=== PATIENT | female | born 1935 | race Caucasian/White ===

== ENCOUNTER 2018-06-05 15:11 | Emergency (ER) | payer MEDICARE, OTHER ==
[~2018-06-05] VITALS: Ht 147.3 cm; Wt 49.9 kg
--- NOTE | 2018-06-05 16:41 | Diagnostic Imaging Report ---
Claims: Head and cervical spine CTs without IV contrast History: Trauma, fall, pain Comparison studies: None Technique: Axial images were obtained from the brain and cervical spine. Coronal and sagittal images reconstructed from the axial data. Dose modulation, iterative reconstruction, and/or weight based adjustment of the mA/kV was utilized to reduce the radiation dose to as low as reasonably achievable. Intravenous contrast: None Findings: Head CT: Scalp: Mild paramedian scalp swelling. Bones: No fractures, blastic or lytic lesions. Extra-axial spaces: No masses. No fluid collections. Brain sulci: Moderately prominent. Ventricles: Moderate compensatory dilatation. No hydrocephalus. Parenchyma: No mass, acute hemorrhage or acute cortical vascular insults. A few scattered hypodensities in the supratentorial white matter are nonspecific but most compatible with chronic small vessel ischemic changes. Sellar/suprasellar region: No abnormalities. Craniocervical junction: The foramen magnum is patent. No Chiari one malformation. Cervical spine CT: Fractures: None. Soft tissues: No gross abnormalities. Atlantoaxial articulation: Intact. Alignment: Hyperlordotic curvature. No subluxations. Cervicomedullary junction: No abnormalities. The foramen magnum is patent. Vertebrae: Diffusely demineralized bones and vertebrae. No infection or neoplasm. Degenerative changes: Multilevel disc degeneration, greatest at C5-C6 where there is mild loss of disc height and disc calcification. No significant canal stenosis. Multilevel facet arthrosis. Moderate bilateral foraminal stenosis at C5-C6 due to uncovertebral and facet arthrosis. Code along apices: Mild nonspecific pleural thickening and scarring Incidental findings: Bilateral lens replacements for previous scattered surgery. Atherosclerotic calcifications in the carotid bulbs and carotid siphons. Scattered nonspecific inflammatory mucosal thickening in the paranasal sinuses with partially opacified bilateral ethmoid air cells. IMPRESSION: Head CT: 1. Paramedian occipital scalp swelling without underlying fracture. 2. No acute intracranial abnormalities. 3. Moderate generalized cerebral volume loss. 4. Mild chronic microvascular ischemic changes. Cervical spine CT: 1. No cervical spine fracture or subluxation. 2. Degenerative changes, greatest at C5-C6. 3. Please note, cannot exclude ligament, spinal cord and or vascular abnormalities on the basis of this examination. Signed by: Dr. Ernesto Garcia M.D. on 06/05/2018 4:37 PM
--- NOTE | 2018-06-05 16:57 | Diagnostic Imaging Report ---
HUMERUS LEFT 2+VIEWS - 2 views HISTORY: Pain. Fell. Left arm pain. COMPARISON: None available. FINDINGS: Bones: No acute displaced fracture. Osseous alignment is within normal limits. Joints: Moderate degenerative changes in the left glenohumeral joint. Soft tissues: The soft tissues appear unremarkable. IMPRESSION: No acute radiographic abnormality. Signed by: Dr. Bobby Alarcon M.D. on 06/05/2018 4:54 PM
--- NOTE | 2018-06-05 16:57 | Diagnostic Imaging Report ---
HIPS BILAT 3-4VWS (+/- PELVIS) HISTORY: Pain. As follow twice. Complaining of left posterior rib pain status post fall. Pain in the left arm and bilateral hips. COMPARISON: None available. FINDINGS: Bones: No acute displaced fracture. Osseous alignment is within normal limits. Joints: Mild degenerative changes in bilateral hip joints. Severe degenerative changes in the lower lumbar spine. Moderate degenerative changes in bilateral SI joints. Moderate degenerative changes in the pubic symphysis. Soft tissues: The soft tissues appear unremarkable. Calcified uterine fibroids. IMPRESSION: Mild degenerative changes in bilateral hip joints with severe degenerative changes of lower lumbar spine. No acute fractures. Signed by: Dr. Bobby Alarcon M.D. on 06/05/2018 4:54 PM
--- NOTE | 2018-06-05 16:58 | Diagnostic Imaging Report ---
EXAMINATION: CHEST SINGLE (NOT PORTABLE) INDICATION: ^left posterior rib pain s/p fall COMPARISON: None FINDINGS: AP view TUBES and LINES: None. LUNGS: Lungs are mildly hyper inflated. Lungs are clear. There is no evidence of pneumonia or pulmonary edema. PLEURA: No pleural effusion or pneumothorax. HEART AND MEDIASTINUM: The cardiomediastinal silhouette is unremarkable. BONES AND SOFT TISSUES: No acute osseous lesion. Diffuse osteopenia. Soft tissues are unremarkable. Bilateral breast/soft tissue calcifications. UPPER ABDOMEN: No free air under the diaphragm. IMPRESSION: Diffuse osteopenia. No acute abnormalities. Signed by: Dr. Bobby Alarcon M.D. on 06/05/2018 4:55 PM
== END 2018-06-05 17:39 | disposition home or self-care (01) ==
LOC: ER 15:11
DX: S00.83XA Contusion of other part of head, initial encounter (principal); S40.022A Contusion of left upper arm, initial encounter; S20.222A Contusion of left back wall of thorax, initial encounter; M54.6 Pain in thoracic spine; W01.0XXA Fall on same level from slipping, tripping and stumbling without subsequent striking against object, initial encounter; Y92.008 Other place in unspecified non-institutional (private) residence as the place of occurrence of the external cause
CPT/HCPCS: 70450; 71045; 72125; 73522; 99283

== ENCOUNTER 2018-06-10 14:47 | Emergency (ER) | payer MEDICARE, OTHER ==
[~2018-06-10] VITALS: Ht 147.3 cm; Wt 49.9 kg
--- OUTSIDE RECORDS SUMMARY | 2018-06-10 14:50 | XMS REPORT ---
[facility] Address Unknown Phone Unavailable Care Team Providers Care Superintendent Building Name Role Phone Gonzalo CARDOZA Unavailable Unavailable Problems This patient has no known problems. Allergies, Adverse Reactions, Alerts This patient has no known allergies or adverse reactions. Medications This patient has no known medications. Results Test Description Test Time Test Comments Text Results Atomic Results Result Comments HUMERUS LEFT 2+VIEWS 2018-06-05 16:54:00 [place] [address] Patient Name: DEJA PETERSEN MR #: [id number] : 1935 Age/Sex: 82/F Req #: [id number] Adm Physician: Ordered by: AVIS TSAI HEAD OF GEOGRAPHY Report #: [id number] Location: ER Room/Bed: Procedure: [id number] DX/HUMERUS LEFT 2+VIEWS Exam Date: 06/05/18 Exam Time: 1550 REPORT STATUS: Signed HUMERUS LEFT 2+VIEWS - 2 views HISTORY: Pain. Fell. Left arm pain. COMPARISON: None available. FINDINGS: Bones: No acute displaced fracture. Osseous alignment is within normal limits. Joints: Moderate degenerative changes in the left glenohumeral joint. Soft tissues: The soft tissues appear unremarkable. IMPRESSION: No acute radiographic abnormality. Signed by: Dr. Bobby Alarcon M.D. on 06/05/2018 4:54 PM Dictated By: BOBBY ALARCON MD 53 Transcribed By: ARTURO on 06/05/181653 COPY TO: AVIS TSAI NP CHEST SINGLE (NOT PORTABLE) 2018-06-05 16:54:00 [place] [address] Patient Name: DEJA PETERSEN MR #: [id number] : 1935 Age/Sex: 82/F Req #: [id number] Adm Physician: Ordered by: AVIS TSAI NP Report #: [id number] Location: ER Room/Bed: Procedure: [id number] DX/CHEST SINGLE (NOT PORTABLE) Exam Date: 06/05/18 Exam Time: 1550 REPORT STATUS: Signed EXAMINATION: CHEST SINGLE (NOT PORTABLE) INDICATION: left posterior rib pain s/p fall COMPARISON: None FINDINGS: AP view TUBES and LINES: None. LUNGS: Lungs are mildly hyper inflated. Lungs are clear. There is no evidence of pneumonia or pulmonary edema. PLEURA: No pleural effusion or pneumothorax. HEART AND MEDIASTINUM: The cardiomediastinal silhouette is unremarkable. EDDIE MONAE AND SOFT TISSUES: No acute osseous lesion. Diffuse osteopenia. Soft tissues are unremarkable. Bilateral breast/soft tissue calcifications. UPPER ABDOMEN: No free air under the diaphragm. IMPRESSION: Diffuse osteopenia. No acute abnormalities. Signed by: Dr. Bobby lAarcon M.D. on 06/05/2018 4:55 PM Dictated By: BOBBY ALARCON MD 54 Transcribed By: ARTURO on 06/05/181654 COPY TO: TSAI,AVIS L HEAD OF GEOGRAPHY HIPS BILAT 3-4VWS (+/- PELVIS) 2018-06-05 16:52:00 [place] [address] Patient Name: DEJA PETERSEN MR #: [id number] : 1935 Age/Sex: 82/F Req #: [id number] Adm Physician: Ordered by: AVIS TSAI NP Report #: [id number] Location: ER Room/Bed: Procedure: [id number] DX/HIPS BILAT 3-4VWS (+/- PELVIS) Exam Date: Exam Time: REPORT STATUS: Signed HIPS BILAT 3-4VWS (+/- PELVIS) HISTORY: Pain. As follow twice. Complaining of left posterior rib pain status post fall. Pain in the left arm and bilateral hips. COMPARISON: None available. FINDINGS: Bones: No acute displaced fracture. Osseous alignment is within normal limits. Joints: Mild degenerative changes in bilateral hip joints. Severe degenerative changes in the lower lumbar spine. Moderate degenerative changes in bilateral SI joints. Moderate degenerative changes in the pubic symphysis. Soft tissues: The soft tissues appear unremarkable. Calcified uterine fibroids. IMPRESSION: Mild degenerative changes in bilateral hip joints with severe degenerative changes of lower lumbar spine. No acute fractures. Signed by: Dr. Bobby Alarcon M.D. on 06/05/2018 4:54 PM Dictated By: BOBBY ALARCON MD 53 Transcribed By: ARTURO on 06/05/181653 COPY TO: AVIS TSAI NP CT CERVICAL SPINE WO 2018-06-05 16:30:00 [address], [place] [address] Patient Name: DEJA PETERSEN MR #: [id number] : 1935 Age/Sex: 82/F Req #: [id number] [facility] Physician: Ordered by: AVIS TSAI NP Report #: [id number] Location: ER Room/Bed: Procedure: [id number] CT/CT CERVICAL SPINE WO Exam Date: 06/05/18 Exam Time: 1550 REPORT STATUS: Signed Claims: Head and cervical spine CTs without IV contrast History: Trauma, fall, pain Comparison studies: None Technique: Axial images were obtained from the brain and cervical spine. Coronal and sagittal images reconstructed from the axial data. Dose modulation, iterative reconstruction, and/or weight based adjustment of the mA/kV was utilized to reduce the radiation dose to as low as reasonably achievable. Intravenous contrast: None Findings: Head CT: Scalp: Mild paramedian scalp swelling. Bones: No fractures, blastic or lytic lesions. Extra- axial spaces: No masses. No fluid collections. Brain sulci: Moderately prominent. Ventricles: Moderate compensatory dilatation. No hydrocephalus. Parenchyma: No mass, acute hemorrhage or acute cortical vascular insults. A few scattered hypodensities in the supratentorial white matter are nonspecific but most compatible with chronic small vessel ischemic changes. Sellar/suprasellar region: No abnormalities. Craniocervical junction: The foramen magnum is patent. No Chiari one malformation. Cervical spine CT: Fractures: None. Soft tissues: No gross abnormalities. Atlantoaxial articulation: Intact. Alignment: Hyperlordotic curvature. No subluxations. Cervicomedullary junction: No abnormalities. The foramen magnum is patent. Vertebrae: Diffusely demineralized bones and vertebrae. No infection or neopl asm. Degenerative changes: Multilevel disc degeneration, greatest at C5- C6 where there is mild loss of disc height and disc calcification. No significant canal stenosis. Multilevel facet arthrosis. Moderate bilateral foraminal stenosis at C5-C6 due to uncovertebral and facet arthrosis. Code along apices: Mild nonspecific pleural thickening and scarring Incidental findings: Bilateral lens replacements for previous scattered surgery. Atherosclerotic calcifications in the carotid bulbs and carotid siphons. Scattered nonspecific inflammatory mucosal thickening in the parana randal sinuses with partially opacified bilateral ethmoid air cells. IMPRESSION: Head CT: 1. Paramedian occipital scalp swelling without underlying fracture. 2. No acute intracranial abnormalities. 3. Moderate generalized cerebral volume loss. 4. Mild chronic microvascular ischemic changes. Cervical spine CT: 1. No cervical spine fracture or subluxation. 2. Degenerative changes, greatest at C5-C6. 3. Please note, cannot exclude ligament, spinal cord and or vascular abnormalities on the basis of this examination. Signed by: Dr. Sommer Garcia M.D. on 06/05/2018 4:37 PM Dictated By: SOMMER GARCIA MD 1637 Transcribed By: ARTURO on 06/05/18 1637 COPY TO: AVIS TSAI NP CT BRAIN WO 2018-06-05 16:30:00 [place] [address] Patient Name: DEJA PETERSEN MR #: [id number] : 1935 Age/Sex: 82/F Req #: [id number] Adm Physician: Ordered by: AVIS TSAI NP Report #: [id number] Location: ER Room/Bed: Procedure: [id number] CT/CT BRAIN WO Exam Date: 06/05/18 Exam Time: 1550 REPORT STATUS: Signed Claims: Head and cervical spine CTs without IV contrast His tory: Trauma, fall, pain Comparison studies: None Technique: Axial images were obtained from the brain and cervical spine. Coronal and sagittal images reconstructed from the axial data. Dose modulation, iterative reconstruction, and/or weight based adjustment of the mA/kV was utilized to reduce the radiation dose to as low as reasonably achievable. Intravenous contrast: None Findings: Head CT: Scalp: Mild paramedian scalp swelling. Bones: No fractures, blastic or lytic lesions. Extra- axial spaces: No masses. No fluid collections. Brain sulci: Moderately prominent. Ventricles: Moderate compensatory dilatation. No hydrocephalus. Parenchyma: No mass, acute hemorrhage or acute cortical vascular insults. A few scattered hypodensities in the supratentorial white matter are nonspecific but most compatible with chronic small vessel ischemic changes. Sellar/suprasellar region: No abnormalities. Craniocervical junction: The foramen magnum is patent. No Chiari one malformation. Cervical spine CT: Fractures: None. Soft tissues: No gross abnormalities. Atlantoaxial articulation: Intact. Alignment: Hyperlordotic curvature. No subluxations. Cervicomedullary junction: No abnormalities. The foramen magnum is patent. Vertebrae: Diffusely demineralized bones and vertebrae. No infection or neoplasm. Degenerative changes: Multilevel disc degeneration, greatest at C5-C6 where there is mild loss of disc height and disc calcification. No significant canal stenosis. Multilevel facet arthrosis. Moderate bilateral foraminal stenosis at C5-C6 due to uncovertebral and facet arthrosis. Code along apices: Mild nonspecific pleural thickening and scarring Incidental findings: Bilateral lens replacements for previous scattered surgery. Atherosclerotic calcifications in the carotid bulbs and carotid siphons. Scattered nonspecific inflammatory mucosal thickening in the paranasal sinuses with partially opacified bilateral ethmoid air cells. IMPRESSION: Head CT: 1. Paramedian occipital scalp swelling without underlying fracture. 2. No acute intracranial abnormalities. 3. Moderate generalized cerebral volume loss. 4. Mild chronic microvascular ischemic changes. Cervical spine CT: 1. No cervical spine fracture or subluxation. 2. Degenerative changes, greatest at C5-C6. 3. Please note, cannot exclude ligament, spinal cord and or vascular abnormalities on the basis of this examination. Signed by: Dr. Sommer Garcia M.D. on 06/05/2018 4:37 PM Dictated By: SOMMER GARCIA MD 36 Transcribed By: ARTURO on 06/05/181636 COPY TO: AVIS TSAI HEAD OF GEOGRAPHY CBC 2017-08-06 18:57:00 WBC (test code=WBC) 1.2 K/UL 3.5-10.9 RBC (test code=RBC) 2.32 M/UL 4.0-5.0 HGB (test code=HGB) 7.4 G/DL 11.5-15.5 HCT (test code=HCT) 23.1 % 34-46 MCV (test code=MCV) 99.6 FL 80-98 MCH (test code=MCH) 31.9 PG 28-32 MCHC (test code=MCHC) 32.0 G/DL 32.5-36.5 RDW (test code=RDW) 19.6 % 11.5-14.5 PLT (test code=PLT) 276 K/UL 150-450 MPV (test code=MPV) 8.4 FL 7.4-10.4 MANDIFF (test code=MANDIFF) NO SCAN (test code=SCAN) YES NEUT% (test code=NEUT%) 13.2 % 40-75 LYMPH% (test code=LYMPH%) 63.9 % 24-44 MONO% (test code=MONO%) 21.3 % 0-13 EOS% (test code=EOS%) 0.8 % 0-4 BASO % (test code=BASO%) 0.8 % 0-2 IG% (test code=IG%) 0.0 % 0-1 IG%=Metamyelocytes, Myelocytes, and Promyelocytes. (Immature neutrophils not including "bands".) > 3% IG indicates risk of sepsis NRBC% (test code=NRBC%) 0 /100 WBC PLT-EST (test code=PLT-EST) NORMAL NORMAL HYPOCHROMIC (test code=HYPO) 1+ ABS NEUT (test code=NEUT) 0.2 K/UL 1.2-7.2 RESULTS VERIFIED.C'd TO SF CALLED TO DR. TREJO 1830 08/06/[id number] 17:10:00* Test Item Value Reference Range Comments SODIUM (test code=NA) 139 MMOL/L 137-145 K+ (test code=KSERUM) 4.0 MMOL/L 3.5-5.1 PLEASE NOTE NEW REFERENCE RANGE(S) IN EFFECT EFFECTIVE 10/28/2009 - [employer] ([employer] 5600) CHLORIDE (test code=CL) 102 MMOL/L 98-107 CO2 (test code=CO2) 26 MMOL/L 22-30 BUN (test code=BUN) 12 MG/DL 7-17 CREA (test code=CREA) 0.7 MG/DL 0.7-1.2 GLUCOSE (test code=GLUCOSE) 89 MG/DL 70-99 Fasting glucose normal <100 MG/DL- [employer] recommendation CALCIUM (test code=CABLOOD) 8.6 MG/DL 8.4-10.2 TOTPROT (test code=TOTPROT) 7.6 G/DL 6.3-8.2 ALBUMIN (test code=ALBSERUM) 3.6 G/DL 3.5-5.0 BILITOT (test code=BILITOT) 1.1 MG/DL 0.2-1.3 AST (test code=AST) 19 U/L 15-46 PHOSALK (test code=PHOSALK) 99 U/L 38-126 ALT (test code=ALT) 16 U/L 13-69 GFR (test code=GFR) TNP mL/min/1.73m2 GFR CALCULATION IS NOT APPLICABLE FOR PATIENTS <18 A GFR of >90 mL/min/1.73m2 is considered normal. C-REACTIVE [id number] 17:10:00* Test Item Value Reference Range Comments CRP (test code=CRP) 2.5 <1.0 mg/dL SEDIMENTATION [id number] 16:46:00* Test Item Value Reference Range Comments SED RATE (test code=ESR) 99 MM/HR 0-20 QUANTIFERON TB [id number] 08:27:00* Test Item Value Reference Range Comments TBQF (test code=TBQF) NEGATIVE NEGATIVE TESTING [place] [address] (RESULTS AVAILABLE UNDER SEPARATE COVER) [id number] 11:55:00* Test Item Value Reference Range Comments SODIUM (test code=NA) 136 MMOL/L 137-145 K+ (test code=KSERUM) 3.5 MMOL/L 3.5-5.1 PLEASE NOTE NEW REFERENCE RANGE(S) IN EFFECT EFFECTIVE 10/28/2009 - NEW [employer]NA[employer] ([employer] 5600) CHLORIDE (test code=CL) 102 MMOL/L 98-107 CO2 (test code=CO2) 25 MMOL/L 22-30 BUN (test code=BUN) 12 MG/DL 7-17 CREA (test code=CREA) 0.6 MG/DL 0.7-1.2 GLUCOSE (test code=GLUCOSE) 93 MG/DL 70-99 Fasting glucose normal <100 MG/DL- [employer] recommendation CALCIUM (test code=CABLOOD) 8.5 MG/DL 8.4-10.2 TOTPROT (test code=TOTPROT) 7.3 G/DL 6.3-8.2 ALBUMIN (test code=ALBSERUM) 3.3 G/DL 3.5-5.0 BILITOT (test code=BILITOT) 0.9 MG/DL 0.2-1.3 AST (test code=AST) 16 U/L 15-46 PHOSALK (test code=PHOSALK) 102 U/L 38-126 ALT (test code=ALT) 18 U/L 13-69 GFR (test code=GFR) TNP mL/min/1.73m2 GFR CALCULATION IS NOT APPLICABLE FOR PATIENTS <18 A GFR of >90 mL/min/1.73m2 is considered normal. [id number] 11:54:00* Test Item Value Reference Range Comments WBC (test code=WBC) 1.1 K/UL 3.5-10.9 RBC (test code=RBC) 2.56 M/UL 4.0-5.0 HGB (test code=HGB) 7.8 G/DL 11.5-15.5 HCT (test code=HCT) 24.1 % 34-46 MCV (test code=MCV) 94.1 FL 80-98 MCH (test code=MCH) 30.5 PG 28-32 MCHC (test code=MCHC) 32.4 G/DL 32.5-36.5 RDW (test code=RDW) 17.9 % 11.5-14.5 PLT (test code=PLT) 234 K/UL 150-450 MPV (test code=MPV) 8.5 FL 7.4-10.4 MANDIFF (test code=MANDIFF) NO SCAN (test code=SCAN) YES NEUT% (test code=NEUT%) 19.8 % 40-75 LYMPH% (test code=LYMPH%) 55.9 % 24-44 MONO% (test code=MONO%) 23.4 % 0-13 EOS% (test code=EOS%) 0.0 % 0-4 BASO % (test code=BASO%) 0.9 % 0-2 IG% (test code=IG%) 0.0 % 0-1 IG%=Metamyelocytes, Myelocytes, and Promyelocytes. (Immature neutrophils not including "bands".) > 3% IG indicates risk of sepsis NRBC% (test code=NRBC%) 0 /100 WBC PLTMORPH (test code=PLTMORPH) LARGE PLATELETS NORMAL ABS NEUT (test code=NEUT) 0.2 K/UL 1.2-7.2 RESULTS VERIFIED.C'd TO e/ [facility] office/1154/[id number] 15:35:00* Test Item Value Reference Range Comments WBC (test code=WBC) 1.3 K/UL 3.5-10.9 RBC (test code=RBC) 2.36 M/UL 4.0-5.0 HGB (test code=HGB) 7.3 G/DL 11.5-15.5 HCT (test code=HCT) 22.6 % 34-46 MCV (test code=MCV) 95.8 FL 80-98 MCH (test code=MCH) 30.9 PG 28-32 MCHC (test code=MCHC) 32.3 G/DL 32.5-36.5 RDW (test code=RDW) 16.6 % 11.5-14.5 PLT (test code=PLT) 159 K/UL 150-450 MPV (test code=MPV) 8.7 FL 7.4-10.4 MANDIFF (test code=MANDIFF) NO SCAN (test code=SCAN) YES NEUT% (test code=NEUT%) 13.9 % 40-75 LYMPH% (test code=LYMPH%) 61.5 % 24-44 MONO% (test code=MONO%) 22.3 % 0-13 EOS% (test code=EOS%) 0.0 % 0-4 BASO % (test code=BASO%) 1.5 % 0-2 IG% (test code=IG%) 0.8 % 0-1 IG%=Metamyelocytes, Myelocytes, and Promyelocytes. (Immature neutrophils not including "bands".) > 3% IG indicates risk of sepsis NRBC% (test code=NRBC%) 0 /100 WBC PLT-EST (test code=PLT-EST) NORMAL NORMAL ANISOCYTOISIS (test code=ANIS) 3+ ABS NEUT (test code=NEUT) 0.2 K/UL 1.2-7.2 CHECKED x2 RESULTS VERIFIED.C'd TO ord/opi/1040/caBMP, BASIC METABOLIC PANEL 2017-06-05 11:22:00* Test Item Value Reference Range Comments SODIUM (test code=NA) 139 MMOL/L 137-145 K+ (test code=KSERUM) 3.5 MMOL/L 3.5-5.1 PLEASE NOTE NEW REFERENCE RANGE(S) IN EFFECT EFFECTIVE 10/28/2009 - NEW ANA[employer]ZER ([employer] 56[employer]) CHLORIDE (test code=CL) 103 MMOL/L 98-107 CO2 (test code=CO2) 26 MMOL/L 22-30 BUN (test code=BUN) 12 MG/DL 7-17 CREA (test code=CREA) 0.6 MG/DL 0.7-1.2 GLUCOSE (test code=GLUCOSE) 83 MG/DL 70-99 Fasting glucose normal <100 MG/DL- [employer] recommendation CALCIUM (test code=CABLOOD) 8.6 MG/DL 8.4-10.2 GFR (test code=GFR) TNP mL/min/1.73m2 GFR CALCULATION IS NOT APPLICABLE FOR PATIENTS <18 A GFR of >90 mL/min/1.73m2 is considered normal. [id number] 21:59:00* Test Item Value Reference Range Comments WBC (test code=WBC) 1.1 K/UL 3.5-10.9 RBC (test code=RBC) 2.35 M/UL 4.0-5.0 HGB (test code=HGB) 7.3 G/DL 11.5-15.5 HCT (test code=HCT) 23.3 % 34-46 MCV (test code=MCV) 99.1 FL 80-98 MCH (test code=MCH) 31.1 PG 28-32 MCHC (test code=MCHC) 31.3 G/DL 32.5-36.5 RDW (test code=RDW) 16.8 % 11.5-14.5 PLT (test code=PLT) 229 K/UL 150-450 MPV (test code=MPV) 9.0 FL 7.4-10.4 MANDIFF (test code=MANDIFF) NO SCAN (test code=SCAN) NO NEUT% (test code=NEUT%) 5.6 % 40-75 LYMPH% (test code=LYMPH%) 73.4 % 24-44 MONO% (test code=MONO%) 17.4 % 0-13 EOS% (test code=EOS%) 0.0 % 0-4 BASO % (test code=BASO%) 1.8 % 0-2 IG% (test code=IG%) 1.8 % 0-1 IG%=Metamyelocytes, Myelocytes, and Promyelocytes. (Immature neutrophils not including "bands".) > 3% IG indicates risk of sepsis NRBC% (test code=NRBC%) 0 /100 WBC ABS NEUT (test code=NEUT) 0.1 K/UL 1.2-7.2 DR. MCCLOUD @6325. CONSISTENT WITH PATIENT HISTORY.LS RESULTS VERIFIED.C'd TO DR. TREJO OFFICE @5945/LEFT MESSAGE.IGG [id number] 19:43:00* Test Item Value Reference Range Comments IGG (test code=IGGS) 2066 mg/dL 700-1600 IGM [id number] 19:43:00* Test Item Value Reference Range Comments IGM (test code=IGMS) 148 mg/dL 40-230 IGA [id number] 19:43:00* Test Item Value Reference Range Comments IGA (test code=IGAS) 1005 mg/dL 70-400 SEDIMENTATION [id number] 19:25:00* Test Item Value Reference Range Comments SED RATE (test code=ESR) 105 MM/HR 0-20 [id number] 19:13:00* Test Item Value Reference Range Comments SODIUM (test code=NA) 138 MMOL/L 137-145 K+ (test code=KSERUM) 3.4 MMOL/L 3.5-5.1 PLEASE NOTE NEW REFERENCE RANGE(S) IN EFFECT EFFECTIVE 10/28/2009 - NEW ANALYZER ([employer] 5600) CHLORIDE (test code=CL) 99 MMOL/L 98-107 CO2 (test code=CO2) 28 MMOL/L 22-30 BUN (test code=BUN) 13 MG/DL 7-17 CREA (test code=CREA) 0.7 MG/DL 0.7-1.2 GLUCOSE (test code=GLUCOSE) 102 MG/DL 70-99 Fasting glucose normal <100 MG/DL- [employer] recommendation CALCIUM (test code=CABLOOD) 8.6 MG/DL 8.4-10.2 TOTPROT (test code=TOTPROT) 7.4 G/DL 6.3-8.2 ALBUMIN (test code=ALBSERUM) 3.3 G/DL 3.5-5.0 BILITOT (test code=BILITOT) 1.0 MG/DL 0.2-1.3 AST (test code=AST) 18 U/L 15-46 PHOSALK (test code=PHOSALK) 111 U/L 38-126 ALT (test code=ALT) <6 U/L 13-69 GFR (test code=GFR) TNP mL/min/1.73m2 GFR CALCULATION IS NOT APPLICABLE FOR PATIENTS <18 A GFR of >90 mL/min/1.73m2 is considered normal. C-REACTIVE [id number] 19:13:00* Test Item Value Reference Range Comments CRP (test code=CRP) 3.7 <1.0 mg/dL CT ABDOMEN/PELVIS [id number] 10:47:[address] [address]HZUBICMKSC IMAGING REPORTPatient Name: DEJA PETERSEN SDate of Service: 09-20-1354Yor: 81 Sex: F Order #: [id number] Room: OPEDOB: 1935 X-Ray Number: [id number] Record Number: [id number] Hospital Number: [id number] Physician: JAYME TREJO Physician: JAYME TREJO LCT abdomen and pelvis with contrast9:01 AMHistory: Leukopenia, anemia, abnormal weight loss. Assess forlymphadenopathy and splenomegaly.This CT exam was performed using one or more of the following dosereduction techniques: Automated exposure control, adjustment of the MAand/or KV according to patient size or use of iterative reconstructionte chnique.Findings:The spleen is enlarged measuring approximately 15 x 9 x 11 cm. There are nofocal splenic mass lesions seen.There is no enlarged lymphadenopathy seen within the abdomen or pelvis.There are multiple calcified uterine fibroids, largest measuring nearly 3cm.There is no small bowel obstruction.There is mode rate sigmoid colonic diverticulosis without associateddiverticulitis.There is no evidence for appendicitis or pancreatitis.Degenerative scoliosis is present.Both kidneys enhance symmetrically without hydronephrosis.There are no other focal solid organ solid mass lesions.Degenerative scoliosis.Impression:Splenomegaly (1 5 x 11 x 9 cm) without focal splenic mass lesion.Multiple calcified uterine fibr oids.Electronically Signed By: Andrew Qureshi M.D., 06/26/2016 10:43 AMLegamesha au thenticated by SUKUMAR PLATT 2016-06-26 10:43:55HAND [id number] 13:55:[address] [id number] TIC IMAGING REPORTPatient Name: DEJA PETERSEN SDate of Service: 05-27-7958Hyp : 80 Sex: F Order #: [id number] Room: OPEDOB: 1935 X-Ray Number: [id number] Record Number: [id number] Hospital Number: [id number] Physician: JAYME TREJO Physician: JAYME TREJO LMultiple plain film vie ws.History: Rheumatoid arthritis.Comparison: None.Technique/findings:Chest: 2 vi ews of the chest were obtained. The heart size is at the upperlimits of normal w ith prominence of left ventricle. Lungs appearhyperinflated/emphysematous but fo mikel clear. The osseous structuresappear intact with S-shaped scoliosis of the thoracolumbar spine noted.Right wrist and hand: 3 views of the right hand, 4 vie ws of the right wristwere reviewed. Images the right wrist demonstrate diffuse o steopenia. Thereis marked radiocarpal joint space loss. There is no discernible spacebetween the scaphoid and the lunate. The second intercarpal row may also be fused at multiple levels. There is degenerative joint space loss and poorvisuali zation of the joint space between the carpometacarpal joints at thesecond and th ird carpometacarpal joint. There is subluxation of the base ofthe first metacarp al. There is subluxation of the first carpometacarpaljoint. There is contracture deformity of the first interphalangeal joint.The joint spaces of the other meta carpal phalangeal joints appear wellpreserved. The interphalangeal and distal in terphalangeal joints appearnarrowed without erosions.Left wrist and hand: 3 view s of left hand, 4 views of the left wrist werereviewed. Again, there is radiocar pal joint space loss although theintercarpal joint spaces appear better preserve d than those seen on theright. There is sclerosis and subluxation of the first c arpometacarpaljoint. There is diffuse osteopenia. There are no significant bony erosivechanges. There are no bony erosive changes involving the metacarpals orph alanges. There is mild degenerative joint space loss of theinterphalangeal joint s. There is no significant left thumb contracture.Impression:No acute-appearing cardiopulmonary abnormalities. Images of the hands andwrists suggest diffuse non inflammatory osteoarthritic changes andosteopenia.Electronically Signed By: Nigel Gunn M.D., 06/06/2016 1:52 PMLegally authenticated by NAOMIE Pierre 2016-06-06 13:52:19HAND [id number] 13:55:[address] [id number] IMAGING REPORTPatient Name: DEJA PETERSEN SDate of Service: 88-53-7758Idc: 80 Sex: F Order #: [id number] Room: OPEDOB: 1935 X-Ray Number: [id number] Record Number: [id number] Hospital Number: [id number] Physician: JAYME TREJO Physician: JAYME TREJO LMchase plain film vie ws.History: Rheumatoid arthritis.Comparison: None.Technique/findings:Chest: 2 vi ews of the chest were obtained. The heart size is at the upperlimits of normal w ith prominence of left ventricle. Lungs appearhyperinflated/emphysematous but fo mikel clear. The osseous structuresappear intact with S-shaped scoliosis of the thoracolumbar spine noted.Right wrist and hand: 3 views of the right hand, 4 vie ws of the right wristwere reviewed. Images the right wrist demonstrate diffuse o steopenia. Thereis marked radiocarpal joint space loss. There is no discernible spacebetween the scaphoid and the lunate. The second intercarpal row may also be fused at multiple levels. There is degenerative joint space loss and poorvisuali zation of the joint space between the carpometacarpal joints at thesecond and th ird carpometacarpal joint. There is subluxation of the base ofthe first metacarp al. There is subluxation of the first carpometacarpaljoint. There is contracture deformity of the first interphalangeal joint.The joint spaces of the other meta carpal phalangeal joints appear wellpreserved. The interphalangeal and distal in terphalangeal joints appearnarrowed without erosions.Left wrist and hand: 3 view s of left hand, 4 views of the left wrist werereviewed. Again, there is radiocar pal joint space loss although theintercarpal joint spaces appear better preserve d than those seen on theright. There is sclerosis and subluxation of the first c arpometacarpaljoint. There is diffuse osteopenia. There are no significant bony erosivechanges. There are no bony erosive changes involving the metacarpals orph alanges. There is mild degenerative joint space loss of theinterphalangeal joint s. There is no significant left thumb contracture.Impression:No acute-appearing cardiopulmonary abnormalities. Images of the hands andwrists suggest diffuse non inflammatory osteoarthritic changes andosteopenia.Electronically Signed By: Nigel Gunn M.D., 06/06/2016 1:52 PMLegally authenticated by NAOMIE Pierre 2016-06-06 13:52:19CHEST XR 2 [id number] 13:55:[address] [id number] IMAGING REPORTPatient Name: DEJA PETERSEN SDate of Service: [id number]: 80 Sex: F Order #: [id number] Room: OPEDOB: 1935 X-Ray Number: [id number] Record Number: [id number] Hospital Number: [id number] Physician: JAYME TREJO Physician: JAYME TREJO plain film vie ws.History: Rheumatoid arthritis.Comparison: None.Technique/findings:Chest: 2 vi ews of the chest were obtained. The heart size is at the upperlimits of normal w ith prominence of left ventricle. Lungs appearhyperinflated/emphysematous but fo mikel clear. The osseous structuresappear intact with S-shaped scoliosis of the thoracolumbar spine noted.Right wrist and hand: 3 views of the right hand, 4 vie ws of the right wristwere reviewed. Images the right wrist demonstrate diffuse o steopenia. Thereis marked radiocarpal joint space loss. There is no discernible spacebetween the scaphoid and the lunate. The second intercarpal row may also be fused at multiple levels. There is degenerative joint space loss and poorvisuali zation of the joint space between the carpometacarpal joints at thesecond and th ird carpometacarpal joint. There is subluxation of the base ofthe first metacarp al. There is subluxation of the first carpometacarpaljoint. There is contracture deformity of the first interphalangeal joint.The joint spaces of the other meta carpal phalangeal joints appear wellpreserved. The interphalangeal and distal in terphalangeal joints appearnarrowed without erosions.Left wrist and hand: 3 view s of left hand, 4 views of the left wrist werereviewed. Again, there is radiocar pal joint space loss although theintercarpal joint spaces appear better preserve d than those seen on theright. There is sclerosis and subluxation of the first c arpometacarpaljoint. There is diffuse osteopenia. There are no significant bony erosivechanges. There are no bony erosive changes involving the metacarpals orph alanges. There is mild degenerative joint space loss of theinterphalangeal joint s. There is no significant left thumb contracture.Impression:No acute-appearing cardiopulmonary abnormalities. Images of the hands andwrists suggest diffuse non inflammatory osteoarthritic changes andosteopenia.Electronically Signed By: Nigel Gunn M.D., 06/06/2016 1:52 PMLegally authenticated by NAOMIE Pierre 2016-06-06 13:52:[id number] 13:54:[address] [id number] IMAGING REPORTPatient Name: DEJA PETERSEN SDate of Service: [id number]: 80 Sex: F Order #: [id number] Room: OPEDOB: 1935 X-Ray Number: [id number] Record Number: [id number] Hospital Number: [id number] Physician: JAYME TREJO Physician: JAYME TREJO [facility] views.History: Rheumatoid arthritis.Comparison: None.Technique/findings:Chest: 2 views of the chest were obtained. The heart size is at the upperlimits of normal with prominence of left ventricle. Lungs appearhyperinflated/emphysematous but focally clear. The osseous structuresappear intact with S-shaped scoliosis of the thoracolumbar spine noted.Right wrist and hand: 3 views of the right hand, 4 views of the right wristwere reviewed. Images the right wrist demonstrate diffuse osteopenia. Thereis marked radiocarpal joint space loss. There is no discernible spacebetween the scaphoid and the lunate. The second intercarpal row may also be fused at multiple levels. There is degenerative joint space loss and poorvisuali zation of the joint space between the carpometacarpal joints at thesecond and th ird carpometacarpal joint. There is subluxation of the base ofthe first metacarp al. There is subluxation of the first carpometacarpaljoint. There is contracture deformity of the first interphalangeal joint.The joint spaces of the other meta carpal phalangeal joints appear wellpreserved. The interphalangeal and distal in terphalangeal joints appearnarrowed without erosions.Left wrist and hand: 3 view s of left hand, 4 views of the left wrist werereviewed. Again, there is radiocar pal joint space loss although theintercarpal joint spaces appear better preserve d than those seen on theright. There is sclerosis and subluxation of the first c arpometacarpaljoint. There is diffuse osteopenia. There are no significant bony erosivechanges. There are no bony erosive changes involving the metacarpals orph alanges. There is mild degenerative joint space loss of theinterphalangeal joint s. There is no significant left thumb contracture.Impression:No acute-appearing cardiopulmonary abnormalities. Images of the hands andwrists suggest diffuse non inflammatory osteoarthritic changes andosteopenia.Electronically Signed By: Nigel Gunn M.D., 06/06/2016 1:52 PMLegally authenticated by NAOMIE Pierre 2016-06-06 13:52:[id number] 13:54:[address]PT[address] [id number] IMAGING REPORTPatient Name: DEJA PETERSEN SDate of Service: [id number]: 80 Sex: F Order #: [id number] Room: OPEDOB: 1935 X-Ray Number: [id number] Record Number: [id number] Hospital Number: [id number] Physician: JAYME TREJO Physician: JAYME TREJO LMultiplcristi plain film views.History: Rheumatoid arthritis.Comparison: None.Technique/findings:Chest: 2 views of the chest were obtained. The heart size is at the upperlimits of normal with prominence of left ventricle. Lungs appearhyperinflated/emphysematous but focally clear. The osseous structuresappear intact with S-shaped scoliosis of the thoracolumbar spine noted.Right wrist and hand: 3 views of the right hand, 4 views of the right wristwere reviewed. Images the right wrist demonstrate diffuse osteopenia. Thereis marked radiocarpal joint space loss. There is no discernible spacebetween the scaphoid and the lunate. The second intercarpal row may also be fused at multiple levels. There is degenerative joint space loss and poorvisuali zation of the joint space between the carpometacarpal joints at thesecond and th ird carpometacarpal joint. There is subluxation of the base ofthe first metacarp al. There is subluxation of the first carpometacarpaljoint. There is contracture deformity of the first interphalangeal joint.The joint spaces of the other meta carpal phalangeal joints appear wellpreserved. The interphalangeal and distal in terphalangeal joints appearnarrowed without erosions.Left wrist and hand: 3 view s of left hand, 4 views of the left wrist werereviewed. Again, there is radiocar pal joint space loss although theintercarpal joint spaces appear better preserve d than those seen on theright. There is sclerosis and subluxation of the first c arpometacarpaljoint. There is diffuse osteopenia. There are no significant bony erosivechanges. There are no bony erosive changes involving the metacarpals orph alanges. There is mild degenerative joint space loss of theinterphalangeal joint s. There is no significant left thumb contracture.Impression:No acute-appearing cardiopulmonary abnormalities. Images of the hands andwrists suggest diffuse non inflammatory osteoarthritic changes andosteopenia.Electronically Signed By: Nigel Gunn M.D., 06/06/2016 1:52 PMLegally authenticated by NAOMIE Pierre 2016-06-06 13:52:19
[2018-06-10 16:53] LABS: BILIRUBIN,URINE 1+ (NEGATIVE); CLARITY,URINE SL CLOUDY (CLEAR); COLOR,URINE YELLOW (YELLOW); KETONES,URINE 1+ (NEGATIVE); LEUKOCYTE ESTERASE ,URINE 1+ (NEGATIVE); NITRITE,URINE POSITIVE (NEGATIVE); PROTEIN,URINE DIPSTICK 2+ (NEGATIVE); URINE UROBILINOGEN 1 mg/dL (0.2 - 1)
[2018-06-10 17:05] LABS: BACTERIA,URINE MANY /HPF; EPITHELIAL CELLS,URINE RARE /LPF
[2018-06-10] MEDS ORDERED: CEFTRIAXONE SOD 1 GM VIAL IM ONE (17:30)
[2018-06-10 17:44] VITALS: BP 148/81
== END 2018-06-10 18:50 | disposition home or self-care (01) ==
LOC: ER 14:47
DX: M54.5 Low back pain (principal); R10.9 Unspecified abdominal pain; N30.90 Cystitis, unspecified without hematuria
CPT/HCPCS: 81001; 87086; 87186; 99284; J0696

== ENCOUNTER 2018-10-22 05:22 | Inpatient (IN) | payer MEDICARE, OTHER ==
[~2018-10-22] VITALS: Ht 152.4 cm; Wt 43.3 kg
[2018-10-22] MEDS ORDERED: ONDANSETRON HCL INJ 2MG/ML 2ML 2 MG/ML VIAL IV STA (05:25)
[2018-10-22] MEDS ORDERED: HYDROMORPHONE 2MG/ML 2 MG/ML ML IV ONE (05:30)
[2018-10-22 05:48] LABS: BASOPHILS % 0.7 % (0.0-1.0); EOSINOPHILS # (AUTO) 0.1 (0.0-0.4); EOSINOPHILS % 2.5 % (0.0-6.0); HEMATOCRIT 32.3 % (34.2-44.1); HEMOGLOBIN 10.8 g/dL (12.0-16.0); LYMPHOCYTES # (AUTO) 1.4 (1.0-3.2); LYMPHOCYTES % 34.1 % (18.0-39.1); MEAN CORPUSCULAR HEMOGLOBIN 32.8 pg (28-32); MEAN CORPUSCULAR HGB CONC 33.4 g/dL (31-35); MEAN CORPUSCULAR VOLUME 98.2 fL (81-99); MONOCYTES # (AUTO) 0.3 (0.2-0.8); MONOCYTES % 7.8 % (4.4-11.3); NEUTROPHILS # (AUTO) 2.2 (2.1-6.9); NEUTROPHILS % 54.4 % (38.7-80.0); PLATELET COUNT 202 x10e3/uL (140-360); RED BLOOD COUNT 3.29 x10e6/uL (3.6-5.1); RED CELL DISTRIBUTION WIDTH 14.3 % (11.7-14.4)
[2018-10-22 05:58] LABS: INR 0.89; PROTHROMBIN TIME 12.5 seconds (11.9-14.5)
[2018-10-22 05:59] LABS: PARTIAL THROMBOPLASTIN TIME 36.8 seconds (23.8-35.5)
[2018-10-22 06:06] LABS: ALANINE AMINOTRANSFERASE 16 IU/L (0-55); ALBUMIN 3.4 g/dL (3.5-5.0); ALBUMIN/GLOBULIN RATIO 0.9 (0.8-2.0); ALKALINE PHOSPHATASE 102 IU/L (40-150); ANION GAP 14.2 mmol/L (8-16); BLOOD UREA NITROGEN 17 mg/dL (7-26); BUN/CREATININE RATIO 20 (6-25); CALCIUM 9.4 mg/dL (8.4-10.2); CARBON DIOXIDE 24 mmol/L (22-29); CHLORIDE 106 mmol/L (98-107); CREATINE KINASE 22 IU/L (29-168); CREATININE, SERUM 0.84 mg/dL (0.57-1.11); EST GLOMERULAR FILTRATION RATE > 60 ML/MIN (60-); GLUCOSE 113 mg/dL (74-118); POTASSIUM 4.2 mmol/L (3.5-5.1); SODIUM 140 mmol/L (136-145)
--- NOTE | 2018-10-22 06:16 | Diagnostic Imaging Report ---
History:Fall Comparison studies: None Technique: Axial images were obtained from the skull base to the vertex. Coronal and sagittal images reconstructed from the axial data. Dose modulation, iterative reconstruction, and/or weight based adjustment of the mA/kV was utilized to reduce the radiation dose to as low as reasonably achievable. Intravenous contrast: None Findings: Scalp/skull: No abnormalities. Extra-axial spaces: No masses. No fluid collections. Brain sulci: Moderately prominent. Ventricles: Moderate compensatory dilatation. No hydrocephalus. Parenchyma: Subtle hypodensities in the supratentorial white matter are small vessel ischemic changes. No masses, hemorrhage, acute or chronic cortical vascular insults. Sellar/suprasellar region: No abnormalities. Craniocervical junction: Patent foramen magnum. No Chiari one malformation. Incidental findings: Subtle atherosclerotic calcifications in the carotid siphons . Peripheral mucosal thickening in the left maxillary sinus Impression: No acute abnormalities. Chronic findings: 1. Moderate generalized volume loss. 2. Mild supratentorial white matter small vessel ischemic changes. Signed by: Dr. Parvez Valenzuela M.D. on 10/22/2018 6:13 AM
--- NOTE | 2018-10-22 06:22 | Diagnostic Imaging Report ---
History: Fall Comparison studies: None Technique: Axial images were obtained through the cervical region.. Coronal and sagittal images reconstructed from the axial data. Dose modulation, iterative reconstruction, and/or weight based adjustment of the mA/kV was utilized to reduce the radiation dose to as low as reasonably achievable. Intravenous contrast: None Findings: Fractures: No acute fractures Soft tissues: No gross abnormalities. Atlantoaxial articulation: Intact. Alignment: Increased lordosis. No scoliosis. Cervicomedullary junction: No abnormalities. The foramen magnum is patent. Vertebrae: The bones are diffusely demineralized. A chronic, sclerotic compression fracture at T1 resulting in 40% height loss. No retropulsed fragment displaced into the spinal canal. No infection or neoplasm. Degenerative changes: Mildly degenerated disc at C5-6. Mildly degenerated facets throughout the cervical region. Foraminal stenosis, mild right C3-4, left at C4-5, moderate bilaterally at C5-6 due to facet and uncovertebral arthrosis. Patent spinal canal. Incidental bilateral coarse atherosclerotic calcifications in the carotid bulbs. IMPRESSION: 1. The bones are diffusely demineralized but there are no acute fractures. 2. A chronic compression fracture at T1, however, results in 40% height loss. No retropulsed fragment displaced into the spinal canal. 3. Cannot adequately evaluate for ligament, spinal cord and or vascular abnormalities. 4. Degenerative changes as described. Signed by: Dr. Parvez Valenzuela M.D. on 10/22/2018 6:18 AM
--- NOTE | 2018-10-22 06:36 | Diagnostic Imaging Report ---
HIP RIGHT 2-3 VW (+/- PELVIS) HISTORY: Pain. COMPARISON: None available. FINDINGS: Pelvic osseous structures partially obscured by bowel gas. Bones: Acute mildly displaced angulated comminuted and overriding intertrochanteric right femoral fracture. Low bone mass. Joints: The joint spaces are well-maintained. Soft tissues: Calcified uterine fibroids. Moderate stool burden. IMPRESSION: Acute mildly displaced angulated comminuted and overriding intertrochanteric right femoral fracture. Low bone mass. Calcified uterine fibroids. Moderate stool burden. Signed by: Kenyon Trevino DO on 10/22/2018 6:33 AM
--- NOTE | 2018-10-22 06:39 | Diagnostic Imaging Report ---
EXAMINATION: CHEST SINGLE (PORTABLE) INDICATION: Fall aCOMPARISON: Chest radiograph 06/05/2018 FINDINGS: AP view TUBES and LINES: None. LUNGS: Lungs are well inflated. Lungs are clear. There is no evidence of pneumonia or pulmonary edema. PLEURA: No pleural effusion or pneumothorax. HEART AND MEDIASTINUM: The cardiomediastinal silhouette is unremarkable. Aortic arch calcifications. BONES AND SOFT TISSUES: Possible lower thoracic vertebral body compression fractures. Soft tissue calcification probably in the left breast also seen on chest radiograph 06/05/2018. UPPER ABDOMEN: No free air under the diaphragm. IMPRESSION: Possible lower thoracic vertebral body compression fractures. Recommend lateral radiographic views of the thoracic spine. Left breast calcification. Recommend nonemergent dedicated mammography. Signed by: Kenyon Trevino DO on 10/22/2018 6:36 AM
--- NOTE | 2018-10-22 06:43 | NUR ---
report given to yaa gibson
--- NOTE | 2018-10-22 07:06 | NUR ---
PT PLACED ON [place]
[2018-10-22] MEDS: SODIUM CHLORIDE 0.9% 1000ML 1,000 ML IV SCH (07:31)
--- NOTE | 2018-10-22 07:50 | NUR ---
Pt received from ER at this time. Pt is aox1-2. Facial grimacing noted. Pt is being admitted for fracture to right hip after fall sustained at assisted living. Daughter is at the bedside. Breaths are even and unlabored. Received in report from ER that both Dr. Balderrama and Dr. Gomez have been notified of pt arrival.
[2018-10-22 08:00] VITALS: BP 143/67
[2018-10-22 08:32] VITALS: BP 143/67
[2018-10-22] MEDS: HYDROMORPHONE 1MG/1ML INJ IV PRN ×3 (09:18→16:35)
[2018-10-22] MEDS ORDERED: ULTRAM50 MG PO (09:34)
[2018-10-22] MEDS ORDERED: vitamin D2 PO (09:34)
[2018-10-22] MEDS ORDERED: MUCINEX DM ER1 EACH PO (09:34)
[2018-10-22] MEDS ORDERED: SALONPAS PATCH1 EAC1 TOP (09:34)
[2018-10-22] MEDS ORDERED: ACETAMINOPHEN650 M1 PO (09:34)
[2018-10-22] MEDS ORDERED: MIRTAZAPINE15 MG PO (09:34)
[2018-10-22] MEDS ORDERED: POTASSIUM CHLO10 ME1 PO (09:34)
[2018-10-22 11:20] VITALS: BP 165/71
[2018-10-22] MEDS: ONDANSETRON HCL INJ 2MG/ML 2ML 2 MG/ML VIAL IV PRN (12:44)
[2018-10-22 15:33] VITALS: BP 127/60
--- NOTE | 2018-10-22 16:10 | NUR ---
Visit made by the Spiritual Care Department Pastoral Visitor, Nydia Lujan. PV provided pastoral presence, hospitality, and supportive listening. Pastoral Visitor informed pt/family of the scope of [employer] and availability. JARETH BRADSHAW [employer] [employer] Spiritual Care Department O: [phone] Pager: [phone] ([phone] number calling from)
[2018-10-22] MEDS ORDERED: HEPARIN SOD (PORCINE) 5,000 UNIT/ML VIAL SC ONE (17:15)
--- NOTE | 2018-10-22 17:31 | NUR ---
ORTHOPEDICS - CONSULTATION 83 yo confused female who ambulates with a walker at an assisted living presents to the hospital after fall of unknown nature with complaints of an inability to ambulate. Daughter is at bedside but unable to provide much history. Patient somnolent due to analgesics and dementia and unable to provide history or partake in exam. PMdHx: Dementia, Frequent UTI, Anemia, OA SurgHx: PCI, Bone marrow biopsy Allergies: NKDA Meds: as per med rec FamHx: Non-contributory SocHx: Denies Tob, EtOH, or Drugs AVSS Right Lower Leg - no open lesions or sores, no gross deformity Shortened, flexed externall rotated Motor: + EHL, FHL, TA, G/S SILT Pulses + DP, Post tib Compartments soft Xrays demonstrate displaced right intertrochanteric hip fracture 83 year old F with displaced right intertrochanteric hip fracture Plan for right hip IMN tomorrow am Analgesics DVT Prophylaxis - Heparin x 1 dose Follow up femur xrays Bedrest NPO except meds after midnight Hold anticoagulation after midnight IVF while NPO.
[2018-10-22 17:43] LABS: BILIRUBIN,URINE NEGATIVE (NEGATIVE); CLARITY,URINE SL CLOUDY (CLEAR); COLOR,URINE YELLOW (YELLOW); KETONES,URINE NEGATIVE (NEGATIVE); LEUKOCYTE ESTERASE ,URINE NEGATIVE (NEGATIVE); NITRITE,URINE POSITIVE (NEGATIVE); PROTEIN,URINE DIPSTICK NEGATIVE (NEGATIVE); URINE UROBILINOGEN 0.2 mg/dL (0.2 - 1)
--- NOTE | 2018-10-22 17:52 | Diagnostic Imaging Report ---
RIGHT FEMUR - 2 Images HISTORY: Preop, closed right hip fracture COMPARISON: Right hip radiographs October 22, 2018 FINDINGS: See impression IMPRESSION: No significant interval change, including the mildly comminuted, displaced, and angulated intertrochanteric fracture of the right proximal femur. Signed by: Dr. Abrahan Cuellar D.O., M.M.M. on 10/22/2018 5:49 PM
[2018-10-22 18:00] LABS: BACTERIA,URINE MANY /HPF; EPITHELIAL CELLS,URINE RARE /LPF
[2018-10-22 18:21] LABS: BASOPHILS % 0.4 % (0.0-1.0); EOSINOPHILS % 0.2 % (0.0-6.0); HEMATOCRIT 27.2 % (34.2-44.1); LYMPHOCYTES # (AUTO) 0.9 (1.0-3.2); LYMPHOCYTES % 15.6 % (18.0-39.1); MEAN CORPUSCULAR HEMOGLOBIN 32.7 pg (28-32); MEAN CORPUSCULAR HGB CONC 33.1 g/dL (31-35); MEAN CORPUSCULAR VOLUME 98.9 fL (81-99); MONOCYTES # (AUTO) 0.7 (0.2-0.8); MONOCYTES % 11.7 % (4.4-11.3); NEUTROPHILS % 71.9 % (38.7-80.0); PLATELET COUNT 235 x10e3/uL (140-360); RED BLOOD COUNT 2.75 x10e6/uL (3.6-5.1); RED CELL DISTRIBUTION WIDTH 14.8 % (11.7-14.4)
[2018-10-22 18:31] LABS: INR 0.95; PROTHROMBIN TIME 13.2 seconds (11.9-14.5)
[2018-10-22 18:36] LABS: ANION GAP 17.1 mmol/L (8-16); BLOOD UREA NITROGEN 19 mg/dL (7-26); BUN/CREATININE RATIO 23 (6-25); CALCIUM 8.7 mg/dL (8.4-10.2); CARBON DIOXIDE 20 mmol/L (22-29); CHLORIDE 106 mmol/L (98-107); CREATININE, SERUM 0.83 mg/dL (0.57-1.11); EST GLOMERULAR FILTRATION RATE > 60 ML/MIN (60-); GLUCOSE 116 mg/dL (74-118); POTASSIUM 5.1 mmol/L (3.5-5.1); SODIUM 138 mmol/L (136-145)
--- NOTE | 2018-10-22 19:05 | NUR ---
Dr. Pope was here to see pt this evening and spoke with daughter about planned procedure for right hip fx that will be done tomorrow. Notified POA which is son and he states that he spoke with his sister and is aware of all planned procedures. He was able to give verbal consent over phone for surgery of right hip.
[2018-10-22 19:48] VITALS: BP 140/62
[2018-10-22 20:00] VITALS: BP 140/62
[2018-10-23] VITALS (7 sets, daily range): BP systolic 112–134; BP diastolic 53–62
[2018-10-23] MEDS: SODIUM CHLORIDE 0.9% 1000ML 1,000 ML IV SCH ×2 (02:47→05:17)
[2018-10-23] MEDS: HYDROMORPHONE 1MG/1ML INJ IV PRN ×4 (04:26→23:46)
[2018-10-23 06:38] LABS: BASOPHILS % 0.2 % (0.0-1.0); EOSINOPHILS % 0.2 % (0.0-6.0); HEMATOCRIT 24.3 % (34.2-44.1); HEMOGLOBIN 7.9 g/dL (12.0-16.0); LYMPHOCYTES # (AUTO) 0.5 (1.0-3.2); LYMPHOCYTES % 9.4 % (18.0-39.1); MEAN CORPUSCULAR HEMOGLOBIN 32.6 pg (28-32); MEAN CORPUSCULAR HGB CONC 32.5 g/dL (31-35); MEAN CORPUSCULAR VOLUME 100.4 fL (81-99); MONOCYTES # (AUTO) 0.5 (0.2-0.8); MONOCYTES % 8.5 % (4.4-11.3); NEUTROPHILS # (AUTO) 4.6 (2.1-6.9); NEUTROPHILS % 81.5 % (38.7-80.0); PLATELET COUNT 167 x10e3/uL (140-360); RED BLOOD COUNT 2.42 x10e6/uL (3.6-5.1); RED CELL DISTRIBUTION WIDTH 14.7 % (11.7-14.4)
--- NOTE | 2018-10-23 06:50 | NUR ---
RECEIVED PATIENT RESTING IN BED. NO ACUTE DISTRESS NOTED. FAMILY MEMBER AT BEDSIDE. CALL LIGHT WITHIN REACH. BED IN THE LOWEST POSITION.
--- NOTE | 2018-10-23 06:55 | NUR ---
PT TAKEN TO OR VIA HOSPITAL BED AT THIS TIME.NO S/S OF DISTRESS NOTED.PT'S DAUGHTER WAS AT THE BEDSIDE.REPORT GIVEN TO ONCOMING NURSE.
[2018-10-23] MEDS ORDERED: BACITRACIN 50,000 UNIT VIAL ONE (07:03)
[2018-10-23 07:06] LABS: ALBUMIN 2.9 g/dL (3.5-5.0); ALBUMIN/GLOBULIN RATIO 0.8 (0.8-2.0); ANION GAP 15.6 mmol/L (8-16); CALCIUM 8.3 mg/dL (8.4-10.2); CREATININE, SERUM 0.96 mg/dL (0.57-1.11); POTASSIUM 4.6 mmol/L (3.5-5.1)
[2018-10-23] MEDS ORDERED: SUGAMMADEX SODIUM 200 MG/2 ML VIAL IV ONE (07:12)
[2018-10-23] MEDS ORDERED: BUPIVACAINE HCL 0.5% INJ 30 ML VIAL INJ ONE (09:02)
[2018-10-23] MEDS ORDERED: HYDROCODONE/APAP 5MG-325MG TAB PO PRN (09:45)
--- NOTE | 2018-10-23 10:03 | NUR ---
OPERATIVE NOTE - ORTHOPEDICS PREOPERATIVE DIAGNOSIS: Right Hip Intertrochanteric hip fracture with subtrochanteric extension. POSTOPERATIVE DIAGNOSIS: Right Hip Intertrochanteric hip fracture with subtrochanteric extension OPERATION PERFORMED: Right Hip Intramedullary Nailing with Flouroscopic Interpretation ESTIMATED BLOOD LOSS: Approximately 100 cc. DRAINS: None. ANESTHESIA GIVEN: General COMPLICATIONS: None. IMPLANTS: Hancock Gamma 3 system Trochanteric Nail Kit 11 x 380 mm x 125 degree, 10.5 x 95 mm Lag Screw, 5 x 40 mm & 5 x 42.5 mm Locking Fully Threaded Screw INDICATIONS FOR PROCEDURE: The patient is a 83-year-old female, who sustained a Right intertrochanteric hip fracture after a fall. She was admitted for a preoperative medical clearance and to be taken to the operating room for an intramedullary nailing of Right hip fracture. Consent is signed on the chart. All risks and benefits regarding the procedure were explained: Risks of , infection, nerve or blood vessel injury or bleeding, need for blood transfusion, blood clots, failure to heal, need for further surgery were all explained and consent was signed. DESCRIPTION OF OPERATIVE PROCEDURE: The patient was given Ancef 1 gram intravenously preoperatively. Due to her low H&H preoperative, anesthesia and I agreed on providing her 2 units or PRBCs. She with then taken to the operating room where general anesthetic was placed by the anesthesia service on the hospital bed. He was then transferred over to the fracture table in the supine position where a well-padded post was positioned. The Right lower extremity with a SCD was placed into the thigh/leg support with foam padding over all bony prominences. The Right lower extremity had abundant padding placed around the foot and ankle region and was then placed in the foot and ankle support. Next, the Right hip was visualized under AP and lateral fluorosco pic views. The femoral head and neck were well-visualized in both planes at this time. Next, the Right hip was prepped and draped in the usual sterile fashi on utilizing Alcohol then Chloroprep followed by toweling out, followed by dryin g, followed by placement of a shower curtain. Next, a guidepin was placed over t he hip and an AP fluoroscopic view taken to demarcate the height of the greater trochanter and a lateral to demarcate the direction of the femoral shaft.Next, the proposed skin incision of approximately 6 cm in length was marked on the skin. The skin incision was then made with a #10 blade, going down through the skin and subcutaneous tissue. The IT-band and hip abductors were split to the greater trochanter. A guide pin was inserted in adequate position which was confirmed on AP and lateral imaging. An opening reamer was placed over the guide wire and pushed down to the lesser trochanter. Subsequent reaming was performed to pass the nail. The above mentioned nail was introduced into the canal. Next a guide wire was placed in preparation for the lag screw. The wire was visualized in proper AP and Lateral position. The guidewire was measured and the neck and head were reamed over the guidewire. The above mentioned lag Screw was placed in adequate position. The set screw was then placed.The distal screw was then focused on. Through the jig, the distal screw was drilled and the above mentioned screw was introduced to lock the screw distally. The guides were then removed, final imaging was obtained demonstrating the hardware in adequate position. The incisions were closed deep with vicryl and monocryl on the skin. The incisions were cleaned and dressed with Aquacel. The patient was then gently transferred back to the hospital bed and transferred to recovery without difficulty. DO [facility]
--- NOTE | 2018-10-23 10:03 | NUR ---
PATIENT BACK TO UNIT AT THIS TIME. SHE IS IN STABLE CONDITION. FAMILY MEMBERS AT BEDSIDE.
--- NOTE | 2018-10-23 11:38 | Diagnostic Imaging Report ---
EXAMINATION: FEMUR ONE VIEW RIGHT INDICATION: Postoperative COMPARISON: Femur radiograph of 10/22/2018 FINDINGS: There has been interval open reduction internal fixation of the previously seen displaced proximal femur fracture. Alignment is near-anatomic. No new fracture identified. Postoperative subcutaneous emphysema at the lateral thigh. Atherosclerotic vascular calcifications. IMPRESSION: Anatomic alignment status post ORIF of right proximal femur fracture. Signed by: Lissy Richardson MD on 10/23/2018 11:34 AM
[2018-10-23] MEDS ORDERED: TRAMADOL HCL 50 MG TAB PO PRN (12:00)
[2018-10-23] MEDS ORDERED: GUAIFENESIN 600MG/DEXTROMETHORPHAN 30MG TABSR PO PRN (12:00)
[2018-10-23] MEDS: CEFAZOLIN SOD 1 GM/NS 50ML 50 ML IV SCH ×2 (13:14→21:14)
[2018-10-23] MEDS ORDERED: SODIUM CHLORIDE 0.9% 250ML 250 ML ONE (14:25)
[2018-10-23] MEDS: ONDANSETRON HCL INJ 2MG/ML 2ML 2 MG/ML VIAL IV PRN (14:35)
--- NOTE | 2018-10-23 15:02 | Diagnostic Imaging Report ---
Exam: Right hip series, one view. History: Trauma Comparison: Right femur radiographs of earlier the same day. Findings: Single frontal projection of the right hip demonstrates unchanged near-anatomic alignment status post ORIF of right proximal femur fracture. No new fractures identified. Small amount of postoperative subcutaneous air along the lateral right thigh. Impression: Near-anatomic alignment status post ORIF of proximal femur fracture. Signed by: Lissy Richardson MD on 10/23/2018 2:59 PM
[2018-10-23] MEDS: ENOXAPARIN SOD INJ 40 MG/0.4 ML SYR SC SCH (17:00)
--- NOTE | 2018-10-23 17:02 | NUR ---
ORDERS FOR SNF EVAL TODAY CM MET WITH PT'S DTR AT BEDSIDE MANNIE SANDY GAVE HER LIST OF SNF'S IN [facility] WITH MY NAME AND NUMBER SHE WILL CALL ME WHEN SHE CHOOSES ONE PT CONFUSED FROM PAIN MEDS AND GETTING BLOOD TRANSFUSION
--- NOTE | 2018-10-23 17:08 | NUR ---
Nutrition Screen Note RD Recommendation for Physician: The patient meets criteria for MODERATE protein-calorie malnutrition. -Continue regular diet as ordered -Family refused oral nutrition supplements. Plan of Care: RD following, monitoring for tolerance and adequacy Nutrition reason for involvement: Nutrition Risk Trigger MST Primary Diagnose(s): displaced right intertrochanteric hip fracture PMH: Dementia, Frequent UTI, Anemia, OA Ht: 60in Wt: 95.56lb BMI: 18.7kg/m2 IBW: 100lb +/- 10% RD Assessment: (10/23) Chart reviewed. Labs and meds reviewed. 83yo F, who was admitted from assisted living after a fall. Pt had right hip repaired today. Visited pt in the room. Per son, pt is more of a snacker and likes all kind of sweets. Pt has had ~10lbs weight loss since the facility stopped giving pt cola and sweets that she likes. Obtained food preferences and discussed menu options with son. Son would like her foods to be chopped for better PO tolerance. No swallowing difficulty noted. Will communicate needs with kitchen. Current Diet: regular diet Malnutrition Evaluation (10/23/2018) The patient meets criteria for MODERATE protein-calorie malnutrition. Energy intake: <75% of estimated energy requirements for >3 months Weight loss: >7.5% in 3 months (Acute) Fat loss: unable to evaluate Muscle loss: unable to evaluate Supporting Evidence: Fluid accumulation: None Functional Status: reduced Diet Education Needs Assessment: Diet education not indicated. Nutrition Care Level: mod Signed: Tara Alvarado, MS, RD, LD
[2018-10-23] MEDS ORDERED: ROCURONIUM BROMIDE 10 MG/ML 5ML VIAL ONE (17:21)
[2018-10-23] MEDS ORDERED: LIDOCAINE HCL 2% LOCAL INJ 5 ML SDV VIAL INJ ONE (17:21)
[2018-10-23] MEDS ORDERED: DEXAMETHASONE SOD PHOS INJ 4 MG/ML VIAL ONE (17:21)
[2018-10-23] MEDS ORDERED: EPHEDRINE SULFATE INJ 50 MG/10 ML SYR ONE (17:21)
[2018-10-23] MEDS ORDERED: ETOMIDATE 2 MG/ML 10 ML INJ IV ONE (17:21)
[2018-10-23] MEDS ORDERED: ACETAMINOPHEN 1000 MG/100 ML IV ONE (17:21)
[2018-10-23] MEDS ORDERED: SEVOFLURANE INHAL SOLN 250 ML PEN BTL ONE (17:21)
[2018-10-23] MEDS ORDERED: ONDANSETRON HCL INJ 2MG/ML 2ML 2 MG/ML VIAL ONE (17:21)
[2018-10-23] MEDS ORDERED: CEFAZOLIN SOD 1 GM VIAL ONE (17:21)
[2018-10-23] MEDS ORDERED: LIDOCAINE HCL 2% JELLY 5 ML TUBE ONE (17:21)
--- NOTE | 2018-10-23 18:35 | NUR ---
NOTICED THAT PATIENT DID NOT URINATED AFTER COMING FROM PROCEDURE. BLADDER SCANNED AND NOTED 129ML. PAGED DR. Merari MCGARRY TO NOTIFY HIM.
--- NOTE | 2018-10-23 19:23 | NUR ---
REPORT GIVEN TO ONCOMING NURSE. WALKING ROUNDS DONE. PATIENT IS RESTING IN BED. NO ACUTE DISTRESS NOTED. NO S/S OF PAIN NOTED AT THIS TIME. FAMILY MEMBER AT BEDSIDE. CALL LIGHT WITHIN REACH. BED IN THE LOWEST POSITION.
[2018-10-23 20:28] LABS: HEMATOCRIT 30.2 % (34.2-44.1); HEMOGLOBIN 10.4 g/dL (12.0-16.0)
[2018-10-23] MEDS: MIRTAZAPINE 15 MG TAB PO SCH (21:00)
[2018-10-24] VITALS (8 sets, daily range): BP systolic 118–169; BP diastolic 54–74
[2018-10-24] MEDS: HYDROMORPHONE 1MG/1ML INJ IV PRN ×3 (03:27→19:47)
--- NOTE | 2018-10-24 03:45 | NUR ---
patient has not urinated. bladder scanned patient 262 ml in bladder. paged dr manuel pham.
[2018-10-24 05:56] LABS: HEMATOCRIT 28.1 % (34.2-44.1); HEMOGLOBIN 9.4 g/dL (12.0-16.0)
[2018-10-24] MEDS: SODIUM CHLORIDE 0.9% 1000ML 1,000 ML IV SCH (06:14)
[2018-10-24] MEDS: CEFAZOLIN SOD 1 GM/NS 50ML 50 ML IV SCH (06:14)
[2018-10-24 06:22] LABS: ANION GAP 16.5 mmol/L (8-16); CALCIUM 7.4 mg/dL (8.4-10.2); CREATININE, SERUM 1.17 mg/dL (0.57-1.11); POTASSIUM 4.5 mmol/L (3.5-5.1)
--- NOTE | 2018-10-24 06:50 | NUR ---
ROUNDED WITH TAPE TRANSFERRER NURSE, PATIENT RESTING COMFORTABLY AND IN NO DISTRESS, CALL CARBAJAL WITHIN REACH AND BED IN LOWEST POSITION.
--- NOTE | 2018-10-24 08:30 | NUR ---
PROGRESS NOTE - ORTHOPEDICS Patient seen & examined resting comfortably at bedside with daughter nearby. No acute events overnight. Patient continues to be confused, but is more alert and responsive. T 97.6, HR 95, RR 18, BP 138/63 O2 94% Right hip - dressings clean, dry and intact Motor: + EHL, FHL, TA, G/S Sensation intact to light touch Pulses + DP, Post tib Compartments soft, No calf tenderness H/H 9.4/28.1 83 year old F with s/p Right Hip IMN POD#1 Analgesics DVT prophlyaxis PT WBAT Follow up labs DO [facility]
[2018-10-24] MEDS: POTASSIUM CHLORIDE 10MEQ EA PO SCH (09:30)
--- NOTE | 2018-10-24 09:30 | NUR ---
patient Palacios catheter removed at this time, emptied 150 mL of clear, yellow urine. patient tolerated well and will be due to void by 1530
--- NOTE | 2018-10-24 11:36 | NUR ---
CALLED AND LEFT MESSAGE FOR SON AND DAUGHTER TO RETURN CALL TO DETERMINE IF CHOICE IS TO RETURN TO [facility].
[2018-10-24] MEDS ORDERED: ONDANSETRON HCL 4 MG ORAL DISINTEGRATING TAB PO PRN (12:45)
--- NOTE | 2018-10-24 16:00 | NUR ---
patient has not voided, bladder scan shows only 200 mL holding in bladder. paging Dr Gomez
--- NOTE | 2018-10-24 17:00 | NUR ---
PATIENT HAD SMALL BM IN DIAPER, NO SIGN OF URINE. SPOKE WITH MD CONCERNING PATIENT NOT ABLE TO VOID, PER MD NOT TIME TO INSERT MENDEZ UNTIL ABOVE 300 ML.
[2018-10-24] MEDS: ENOXAPARIN SOD INJ 40 MG/0.4 ML SYR SC SCH (17:10)
[2018-10-24] MEDS ORDERED: FENTANYL CITRATE/PF 100MCG/2 ML INJ ONE (18:52)
[2018-10-24] MEDS ORDERED: MORPHINE SULFATE INJ 10 MG/ML ONE (18:52)
[2018-10-24] MEDS: MIRTAZAPINE 15 MG TAB PO SCH (19:47)
[2018-10-25] VITALS (8 sets, daily range): BP systolic 103–151; BP diastolic 49–70
[2018-10-25] MEDS: SODIUM CHLORIDE 0.9% 1000ML 1,000 ML IV SCH ×2 (00:56→14:47)
[2018-10-25] MEDS: HYDROMORPHONE 1MG/1ML INJ IV PRN ×2 (00:56→04:13)
[2018-10-25] MEDS ORDERED: ACETAMINOPHEN 325 MG TAB PO PRN (01:00)
--- NOTE | 2018-10-25 06:14 | NUR ---
patient has not voided since 10/24/18, 0930 am when romeo was DC'd. Dr. Hari Gomez paged. Dr. Gomez has been notified about this issue since 10/24.
[2018-10-25 07:00] LABS: HEMATOCRIT 22.1 % (34.2-44.1); HEMOGLOBIN 7.2 g/dL (12.0-16.0)
[2018-10-25] MEDS ORDERED: HYDROCODONE/APAP 5MG-325MG TAB PO PRN (07:00)
--- NOTE | 2018-10-25 07:00 | NUR ---
rounded with night coordinator nurse, patient resting in bed with daughter at bedside. call dixon within reach and bed in lowest position.
[2018-10-25 07:04] LABS: ANION GAP 12.7 mmol/L (8-16); BLOOD UREA NITROGEN 23 mg/dL (7-26); BUN/CREATININE RATIO 32 (6-25); CALCIUM 7.5 mg/dL (8.4-10.2); CARBON DIOXIDE 19 mmol/L (22-29); CHLORIDE 115 mmol/L (98-107); CREATININE, SERUM 0.71 mg/dL (0.57-1.11); EST GLOMERULAR FILTRATION RATE > 60 ML/MIN (60-); GLUCOSE 71 mg/dL (74-118); POTASSIUM 3.7 mmol/L (3.5-5.1); SODIUM 143 mmol/L (136-145)
--- NOTE | 2018-10-25 07:46 | NUR ---
SPOKE WITH SON WHOM CALLED AND GAVE PERMISSION TO GO TO [facility]
[2018-10-25] MEDS: POTASSIUM CHLORIDE 10MEQ EA PO SCH (08:30)
[2018-10-25] MEDS: TAMSULOSIN HCL 0.4 MG CAP PO SCH (08:30)
[2018-10-25] MEDS ORDERED: SODIUM CHLORIDE 0.9% 250ML 250 ML IV NR (08:45)
--- NOTE | 2018-10-25 09:10 | NUR ---
patient alert and reoriented. straight cath at this time as ordered, emptied 675 mL of a strong odored, yellow urine with sediment. sample sent to the lab for testing. patient now resting in bed, in lowest position with call dixon within reach.
[2018-10-25 09:56] LABS: % IRON SATURATION 11 % (15-50); IRON 14 ug/dL (50-170); TOTAL IRON BINDING CAPACITY 122 ug/dL (261-478); TRANSFERRIN 87 mg/dL (180-382)
--- NOTE | 2018-10-25 13:47 | NUR ---
DR Merari MCGARRY HERE SNF CANCELLED AND ORDER FOR LTAC CM SPOKE WITH PT'S DTR MARIFER PETERSEN [phone] DR MCGARRY ALSO SPOKE WITH HER AND EXPLAINED WHY HE WANTS PT TO GO TO LTAC DTR AGREEABLE MOT INITIATED AND PLACED ON PACKET AT DESK GINA ESCALANTE AT [facility] NOTIFIED OF CONSULT NO ONE AVAILABLE TO COME STATIONARY ENGINEER APPRENTICE CLINICAL I FAXED CLINICALS TO [phone]; CONFIRMATION REC'D ANTICIPATE DC TO [facility] TODAY NURSE JOCELINE UPDATED AND ASKED TO CALL DTR WITH ROOM NUMBER WHEN AVAILABLE
[2018-10-25] MEDS ORDERED: SODIUM CHLORIDE 0.9% 250ML 250 ML ONE (15:24)
[2018-10-25] MEDS: ENOXAPARIN SOD INJ 40 MG/0.4 ML SYR SC SCH (17:30)
--- NOTE | 2018-10-25 17:39 | NUR ---
RECEIVED CALL FROM GINA AT [facility] PT NOT APPROVED FOR [facility] UNTIL UA CX COMES BACK SPOKE WITH Merari MCGARRY WHO IS AWARE OF DENIAL AT THIS TIME PT TOO ILL FOR SNF (TRANSFUSED 4 UNITS OF BLOOD IN PAST 2 DAYS) WILL F/U SUNDAY FOR DISCHARGE DISPOSITION
--- NOTE | 2018-10-25 18:19 | NUR ---
PROGRESS NOTE - ORTHOPEDICS Patient seen & examined resting comfortably at bedside with daughter nearby. Patient participated in therapy yesterday, but did not participate today. Patient more alert and interactive today, in good spirits. Patient less confused as per daughter. T 97.6, HR 80, RR 18, BP 138/65 O2 97% Right hip - dressings clean, dry and intact. Patient has been picking at dressing Motor: + EHL, FHL, TA, G/S Sensation intact to light touch Pulses + DP, Post tib Compartments soft, No calf tenderness Thigh compartments soft H/H 7.2/22.1 83 year old F with s/p Right Hip IMN POD#2 Analgesics DVT prophlyaxis PT WBAT Medical management. Patient orthopedically stable for discharge Plan for dressing change to new aquacel dressings prior to discharge. Will not need dressing change until seen in office Plan for follow up in 2 weeks Discussed plan with daughter at bedside. Lucero Pope, DO [facility]
--- NOTE | 2018-10-25 19:00 | NUR ---
rounded with [facility] shift lead nurse, patient aware of change and resting comfortably with daughter at bedside. call dixon within reach and bed in lowest position.
--- NOTE | 2018-10-25 19:05 | NUR ---
Bedside rounds completed with morning nurse. Pt alert to name. Lying in bed HOB 45 degrees. Pt denies pain at this time. Bed low and locked. Call dixon within reach. Family at bedside. Will continue to monitor.
[2018-10-25 19:40] LABS: BASOPHILS % 0.4 % (0.0-1.0); EOSINOPHILS % 0.2 % (0.0-6.0); HEMATOCRIT 32.2 % (34.2-44.1); HEMOGLOBIN 10.7 g/dL (12.0-16.0); LYMPHOCYTES # (AUTO) 0.8 (1.0-3.2); LYMPHOCYTES % 17.1 % (18.0-39.1); MEAN CORPUSCULAR HEMOGLOBIN 30.1 pg (28-32); MEAN CORPUSCULAR HGB CONC 33.2 g/dL (31-35); MEAN CORPUSCULAR VOLUME 90.7 fL (81-99); MONOCYTES # (AUTO) 0.5 (0.2-0.8); MONOCYTES % 9.7 % (4.4-11.3); NEUTROPHILS # (AUTO) 3.5 (2.1-6.9); NEUTROPHILS % 72.2 % (38.7-80.0); PLATELET COUNT 121 x10e3/uL (140-360); RED BLOOD COUNT 3.55 x10e6/uL (3.6-5.1); RED CELL DISTRIBUTION WIDTH 19.7 % (11.7-14.4)
[2018-10-25] MEDS: MIRTAZAPINE 15 MG TAB PO SCH (20:20)
[2018-10-26 00:35] VITALS: BP 111/56
[2018-10-26 04:59] VITALS: BP 158/67
[2018-10-26 07:30] VITALS: BP 165/70
[2018-10-26] MEDS: TAMSULOSIN HCL 0.4 MG CAP PO SCH (08:18)
[2018-10-26] MEDS: POTASSIUM CHLORIDE 10MEQ EA PO SCH (08:18)
[2018-10-26 08:50] VITALS: BP 165/70
[2018-10-26 09:29] LABS: HEMATOCRIT 32.1 % (34.2-44.1); HEMOGLOBIN 10.8 g/dL (12.0-16.0)
[2018-10-26 09:40] LABS: ANION GAP 14.2 mmol/L (8-16); BLOOD UREA NITROGEN 14 mg/dL (7-26); BUN/CREATININE RATIO 23 (6-25); CARBON DIOXIDE 18 mmol/L (22-29); CHLORIDE 111 mmol/L (98-107); CREATININE, SERUM 0.61 mg/dL (0.57-1.11); EST GLOMERULAR FILTRATION RATE > 60 ML/MIN (60-); GLUCOSE 93 mg/dL (74-118); POTASSIUM 3.2 mmol/L (3.5-5.1); SODIUM 140 mmol/L (136-145)
[2018-10-26 12:32] VITALS: BP 153/65
[2018-10-26] MEDS ORDERED: CEFTRIAXONE SOD 1 GM/NS 50 ML 50 ML IV SCH (13:30)
--- NOTE | 2018-10-26 13:38 | NUR ---
DR PIERRE ON ABX STILL PENDING CULTURE WILL NOTIFY JARED WITH RADHA.
[2018-10-26] MEDS ORDERED: POTASSIUM CHLORIDE 10MEQ EA PO ONE (14:00)
--- NOTE | 2018-10-26 15:49 | Diagnostic Imaging Report ---
Examination: Single AP view of the chest. COMPARISON: October 22, 2018 INDICATION: Congestive heart failure DISCUSSION: Lines/tubes: None. Lungs: The lungs are well inflated and clear. Prominent interstitial markings. No consolidation. Prominence of the central pulmonary vasculature. Heart and mediastinum: The heart and the mediastinum are unremarkable. Bones and soft tissues: No acute bony abnormalities. IMPRESSION: Pulmonary venous congestion Signed by: Dr. Fernie Leung M.D. on 10/26/2018 3:45 PM
--- NOTE | 2018-10-26 16:00 | NUR ---
CALLED DR. HERNANDEZ FOR TRANSFER ORDER TO [facility]. STATED TO PRINT OUT DR. STRINGER'S NOTES FROM THE HIP SURGERY. ORDERS CARRIED OUT.
--- NOTE | 2018-10-26 16:20 | NUR ---
CALLED PT'S DAUGHTER TO GET SIGNATURE FOR [facility] TO DETACHER PT FOR TRANSFER TO [facility]. PT DAUGHTER AGREED TO IT. 2ND NURSE WITNESSED OVER TELEPHONE.
[2018-10-26 16:47] VITALS: BP 186/75
[2018-10-26] MEDS ORDERED: ENOXAPARIN SOD INJ 40 MG/0.4 ML SYR SC SCH (17:00)
--- NOTE | 2018-10-26 17:17 | NUR ---
GAVE REPORT TO NURSE ADELE FROM [facility]. MOT GIVEN TO [employer] DEPARTMENT CHAIR.
--- NOTE | 2018-10-26 18:29 | NUR ---
PT IV LEFT IN PLACE AND INTACT AND PATENT. ON ROOM AIR AND NO S/S OF DISTRESS. [facility] CAME TO FILM AND VIDEO GRAPHICS DESIGNER PT TO TRANSFER HER TO [facility]. TRANSFER PAPERWORK PROVIDED TO EMS.
--- NOTE | 2018-10-27 10:41 | NUR ---
Dictated DC summary: [id number]
--- NOTE | 2018-10-27 11:32 | Discharge Summary ---
ADMIT DIAGNOSES: 1. Right intertrochanteric fracture secondary to mechanical fall. 2. Hypertensive heart disease. 3. Rheumatoid arthritis. 4. Underweight, BMI 18. 5. Anemia secondary to chronic disease. DISCHARGE DIAGNOSES: 1. Status post right hip intramedullary nailing to repair the comminuted right intertrochanteric fracture secondary to mechanical fall. 2. Anemia secondary to chronic disease and iron deficiency. 3. Rheumatoid arthritis. 4. Hypertensive heart disease. 5. Status post blood transfusion. (2 units of packed red blood cells). 6. Moderate dementia. 7. Underweight, BMI 17. 8. Urinary tract infection. HOSPITAL COURSE: This is an 83-year-old white woman, who has known history of mild dementia, hypertension, and rheumatoid arthritis. The patient had several mechanical fall on day of admission, which resulted in a right comminuted intertrochanteric fracture. The patient was seen by her orthopedic surgeon, Dr. Lorna Pope, who performed successful intramedullary nailing of the right hip to repair this fracture. The patient tolerated the procedure and surgery well. The patient has a history of chronic anemia secondary to chronic kidney disease from rheumatoid arthritis and from iron deficiency anemia. The patient iron studies done during this hospitalization, which revealed findings consistent with iron deficiency and chronic disease. The patient's serum iron level was 14 with a TIBC of 122. The patient's present iron saturation was low at 11%. During this hospitalization, patient's hemoglobin got as low as 7.2 g/dL, thus she was transfused 2 units of packed red blood cells. On day of discharge, hemoglobin was 10.8 g/dL. During this hospitalization, the patient was diagnosed with urinary tract infection. A decision was made to transfer the patient to a local long-term acute care facility namely [facility] where she could receive intravenous antibiotics for urinary tract infection as well as daily physician visits for multiple medical comorbidities. More over at the long-term acute care facility, patient's initial status could be optimized. The patient's condition on discharge was stable with an overall fair prognosis. DISCHARGE MEDICATIONS: 1. Rocephin 1 g intravenous daily. 2. Enoxaparin 30 mg subcutaneous daily. 3. Lincoln 5/325 one every 6 hours p.r.n. pain. 4. Mirtazapine 15 mg at bedtime p.r.n. insomnia. FOLLOWUP INSTRUCTIONS: As previously stated, the patient was transferred to a long-term acute care facility namely [facility] where she will receive intravenous antibiotics for her urinary tract infection and would receive daily physician visits for multiple medical comorbidities. Moreover at this facility, the patient received daily occupational and physical therapy. MD ROSEY Mayo/RAND /[id number] cc: DO Zak Gipson MD MTDD
== END 2018-10-26 18:29 | DRG 481 ==
LOC: ER 05:22 → ERHOLD 06:51 → MED/SURG3 07:52
PROC: 0QH606Z Insertion of Intramedullary Internal Fixation Device into Right Upper Femur, Open Approach (ICD-10-PCS; 2018-10-23)
PROC: 30233N1 Transfusion of Nonautologous Red Blood Cells into Peripheral Vein, Percutaneous Approach (ICD-10-PCS; principal; 2018-10-23 07:30)
DX: S72.091A Other fracture of head and neck of right femur, initial encounter for closed fracture (principal); N39.0 Urinary tract infection, site not specified; Z68.1 Body mass index [BMI] 19.9 or less, adult; W19.XXXA Unspecified fall, initial encounter; D63.8 Anemia in other chronic diseases classified elsewhere; M19.90 Unspecified osteoarthritis, unspecified site; F03.90 Unspecified dementia, unspecified severity, without behavioral disturbance, psychotic disturbance, mood disturbance, and anxiety; M06.9 Rheumatoid arthritis, unspecified; R63.6 Underweight; I13.10 Hypertensive heart and chronic kidney disease without heart failure, with stage 1 through stage 4 chronic kidney disease, or unspecified chronic kidney disease; N18.2 Chronic kidney disease, stage 2 (mild)
CPT/HCPCS: 36415; 70450; 71045; 72125; 80048; 80053; 81001; 82270; 82550; 82553; 83540; 84466; 84484; 85014; 85018; 85025; 85610; 85730; 86850; 86900; 86920; 87086; 93005; 96361; 97139; 99284; C1713; J0690; J0696; J1100; J1170; J1644; J1650; J2001; J2270; J2405; J3010; J7030; J7050; P9016

== ENCOUNTER 2019-03-06 10:27 | Emergency (ER) | payer MEDICARE, OTHER ==
[~2019-03-06] VITALS: Ht 177.8 cm; Wt 43.1 kg
[~2019-03-06 10:27] MED LIST: ACETAMINOPHEN650 M1 PO; MIRTAZAPINE15 MG PO; MUCINEX DM ER1 EACH PO; POTASSIUM CHLO10 ME1 PO; SALONPAS PATCH1 EAC1 TOP; ULTRAM50 MG PO; vitamin D2 PO
== END 2019-03-06 10:56 | disposition home or self-care (01) ==
LOC: ER 10:27
DX: H61.23 Impacted cerumen, bilateral (principal); D64.9 Anemia, unspecified; M06.9 Rheumatoid arthritis, unspecified; R25.1 Tremor, unspecified
CPT/HCPCS: 99283

== ENCOUNTER 2020-02-14 19:22 | Inpatient (IN) | payer MEDICARE, OTHER ==
[~2020-02-14] VITALS: Ht 152.4 cm; Wt 49.9 kg
[~2020-02-14 19:22] MED LIST changes: +DEXAMETHASONE SOD PHOS INJ 4 MG/ML VIAL ONE; +ETOMIDATE 2 MG/ML 10 ML INJ IV ONE; +FENTANYL CITRATE/PF 100MCG/2 ML INJ ONE; +GLYCOPYRROLATE INJ 0.2 MG/ML VIAL ONE; +LIDOCAINE HCL 2% LOCAL INJ 5 ML SDV VIAL INJ ONE; +PHENYLEPHRINE HCL 1% 10 MG/ML VIAL ONE; +SEVOFLURANE INHAL SOLN 250 ML PEN BTL ONE
[2020-02-14 19:45] LABS: BASOPHILS % 0.6 % (0.0-1.0); EOSINOPHILS # (AUTO) 0.1 (0.0-0.4); EOSINOPHILS % 2.5 % (0.0-6.0); HEMATOCRIT 28.7 % (34.2-44.1); HEMOGLOBIN 9.4 g/dL (12.0-16.0); LYMPHOCYTES # (AUTO) 0.9 (1.0-3.2); LYMPHOCYTES % 28.9 % (18.0-39.1); MEAN CORPUSCULAR HEMOGLOBIN 33.1 pg (28-32); MEAN CORPUSCULAR HGB CONC 32.8 g/dL (31-35); MEAN CORPUSCULAR VOLUME 101.1 fL (81-99); MONOCYTES # (AUTO) 0.4 (0.2-0.8); MONOCYTES % 11.3 % (4.4-11.3); NEUTROPHILS # (AUTO) 1.8 (2.1-6.9); NEUTROPHILS % 56.4 % (38.7-80.0); PLATELET COUNT 165 x10e3/uL (140-360); RED BLOOD COUNT 2.84 x10e6/uL (3.6-5.1); RED CELL DISTRIBUTION WIDTH 14.6 % (11.7-14.4)
[2020-02-14] MEDS ORDERED: ONDANSETRON HCL INJ 2MG/ML 2ML 2 MG/ML VIAL ONE (19:45)
[2020-02-14] MEDS ORDERED: MORPHINE SULFATE INJ 4 MG/ML INJ 1ML ONE (19:45)
[2020-02-14 19:58] LABS: CLARITY,URINE HAZY (CLEAR); COLOR,URINE YELLOW (YELLOW); KETONES,URINE TRACE (NEGATIVE); LEUKOCYTE ESTERASE ,URINE TRACE (NEGATIVE); NITRITE,URINE POSITIVE (NEGATIVE); PROTEIN,URINE DIPSTICK TRACE (NEGATIVE)
[2020-02-14 19:59] LABS: ALANINE AMINOTRANSFERASE 8 IU/L (0-55); ALBUMIN 3.5 g/dL (3.5-5.0); ALKALINE PHOSPHATASE 78 IU/L (40-150); BLOOD UREA NITROGEN 22 mg/dL (7-26); BUN/CREATININE RATIO 27 (6-25); CALCIUM 8.4 mg/dL (8.4-10.2); CARBON DIOXIDE 25 mmol/L (22-29); CHLORIDE 109 mmol/L (98-107); CREATININE, SERUM 0.81 mg/dL (0.57-1.11); EST GLOMERULAR FILTRATION RATE > 60 ML/MIN (60-); GLUCOSE 126 mg/dL (74-118); SODIUM 144 mmol/L (136-145)
[2020-02-14 19:59] LABS: BILIRUBIN,URINE NEGATIVE (NEGATIVE); URINE UROBILINOGEN 0.2 mg/dL (0.2 - 1)
[2020-02-14 20:01] LABS: BACTERIA,URINE MANY /HPF; RBC,URINE 0-5 /HPF (0-5)
[2020-02-14 20:02] LABS: AMORPHOUS SEDIMENT,URINE FEW (FEW); EPITHELIAL CELLS,URINE FEW /LPF; MUCUS,URINE MODERATE (RARE)
[2020-02-14] MEDS ORDERED: ONDANSETRON HCL INJ 2MG/ML 2ML 2 MG/ML VIAL IV STA (20:37)
[2020-02-14] MEDS ORDERED: MORPHINE SULFATE INJ 4 MG/ML INJ 1ML IV ONE (20:45)
[2020-02-14] MEDS ORDERED: ONDANSETRON HCL INJ 2MG/ML 2ML 2 MG/ML VIAL IV PRN ×2 (21:00→23:45)
[2020-02-14] MEDS ORDERED: HEPARIN SOD (PORCINE) 5,000 UNIT/ML VIAL SC ONE (21:15)
[2020-02-14 21:17] LABS: PROTHROMBIN TIME 13.7 seconds (11.9-14.5)
[2020-02-14] MEDS ORDERED: SODIUM CHLORIDE 0.9% 1000ML 1,000 ML IV STA (21:45)
[2020-02-14] MEDS: KETOROLAC TROMETHAMINE 30 MG/ML VIAL IV PRN (22:45)
[2020-02-14] MEDS: SODIUM CHLORIDE 0.9% 1000ML 1,000 ML IV SCH (23:30)
[2020-02-14] MEDS ORDERED: POLYETHYLENE GLYCOL 3350 17 GM PACK PO PRN (23:45)
[2020-02-14] MEDS ORDERED: BENZONATATE 100 MG CAP PO PRN (23:45)
[2020-02-14] MEDS ORDERED: DEXTROSE 50% SYRINGE 50 ML IV PRN (23:45)
[2020-02-14] MEDS ORDERED: ACETAMINOPHEN 325 MG TAB PO PRN (23:45)
[2020-02-14] MEDS ORDERED: DOCUSATE SODIUM 100 MG CAP PO PRN (23:45)
[2020-02-14] MEDS ORDERED: ALBUTEROL/IPRATROPIUM 3 ML NEB NEB PRN (23:45)
[2020-02-14] MEDS ORDERED: POTASSIUM CHLORIDE 20 MEQ TAB CR PO PRN (23:45)
[2020-02-14] MEDS ORDERED: MELATONIN 5 MG TABLET PO PRN (23:45)
[2020-02-14] MEDS ORDERED: TRAMADOL HCL 50 MG TAB PO PRN (23:45)
[2020-02-15] VITALS (8 sets, daily range): BP systolic 115–153; BP diastolic 41–63
[2020-02-15] MEDS ORDERED: SODIUM CHLORIDE 0.9% 1000ML 1,000 ML IV STA (00:48)
[2020-02-15] MEDS ORDERED: SODIUM CHLORIDE 0.9% 1000ML 1,000 ML ONE (00:57)
[2020-02-15 01:20] LABS: CREATINE KINASE 26 IU/L (29-168)
[2020-02-15] MEDS ORDERED: QUETIAPINE FUMA50 M1 (03:09)
[2020-02-15] MEDS ORDERED: CARVEDILOL3.125 MG PO (03:09)
[2020-02-15] MEDS ORDERED: DOCUSATE SODIU100 MG PO (03:09)
[2020-02-15] MEDS ORDERED: PROCARDIA XL30 MG (03:09)
[2020-02-15] MEDS ORDERED: SENNA LAX8.6 MG PO (03:09)
[2020-02-15] MEDS ORDERED: QUETIAPINE FUMA50 M1 PO (03:09)
[2020-02-15] MEDS ORDERED: ASPIRIN81 MG (03:09)
[2020-02-15] MEDS ORDERED: LEVETIRACETAM500 MG PO (03:09)
[2020-02-15] MEDS ORDERED: LISINOPRIL10 MG PO (03:09)
[2020-02-15] MEDS: SODIUM CHLORIDE 0.9% 1000ML 1,000 ML IV SCH ×2 (04:01→21:56)
[2020-02-15 07:49] LABS: EOSINOPHILS % 0.5 % (0.0-6.0); LYMPHOCYTES # (AUTO) 0.8 (1.0-3.2); LYMPHOCYTES % 38.7 % (18.0-39.1); MEAN CORPUSCULAR HGB CONC 31.1 g/dL (31-35); MEAN CORPUSCULAR VOLUME 102.9 fL (81-99); MONOCYTES # (AUTO) 0.4 (0.2-0.8); MONOCYTES % 18.6 % (4.4-11.3); NEUTROPHILS # (AUTO) 0.8 (2.1-6.9); NEUTROPHILS % 40.7 % (38.7-80.0); PLATELET COUNT 137 x10e3/uL (140-360); RED BLOOD COUNT 1.75 x10e6/uL (3.6-5.1); RED CELL DISTRIBUTION WIDTH 15.6 % (11.7-14.4)
[2020-02-15 07:54] LABS: HEMOGLOBIN 5.6 g/dL (12.0-16.0)
[2020-02-15 08:10] LABS: EOSINOPHILS % 0.5 % (0.0-6.0); LYMPHOCYTES # (AUTO) 0.8 (1.0-3.2); LYMPHOCYTES % 39.3 % (18.0-39.1); MEAN CORPUSCULAR HEMOGLOBIN 31.8 pg (28-32); MEAN CORPUSCULAR HGB CONC 31.3 g/dL (31-35); MEAN CORPUSCULAR VOLUME 101.7 fL (81-99); MONOCYTES # (AUTO) 0.4 (0.2-0.8); NEUTROPHILS # (AUTO) 0.9 (2.1-6.9); NEUTROPHILS % 41.2 % (38.7-80.0); PLATELET COUNT 141 x10e3/uL (140-360); RED BLOOD COUNT 1.76 x10e6/uL (3.6-5.1); RED CELL DISTRIBUTION WIDTH 15.4 % (11.7-14.4)
[2020-02-15 08:12] LABS: ALANINE AMINOTRANSFERASE 7 IU/L (0-55); ALBUMIN 2.6 g/dL (3.5-5.0); ALKALINE PHOSPHATASE 61 IU/L (40-150); ANION GAP 9.9 mmol/L (8-16); BLOOD UREA NITROGEN 25 mg/dL (7-26); BUN/CREATININE RATIO 28 (6-25); CALCIUM 7.2 mg/dL (8.4-10.2); CARBON DIOXIDE 22 mmol/L (22-29); CHLORIDE 116 mmol/L (98-107); CREATININE, SERUM 0.88 mg/dL (0.57-1.11); EST GLOMERULAR FILTRATION RATE > 60 ML/MIN (60-); GLUCOSE 105 mg/dL (74-118); POTASSIUM 3.9 mmol/L (3.5-5.1); SODIUM 144 mmol/L (136-145)
[2020-02-15] MEDS ORDERED: BUPIVACAINE HCL 0.5% INJ 30 ML VIAL INJ ONE (08:14)
[2020-02-15 08:15] LABS: HEMATOCRIT 17.9 % (34.2-44.1); HEMOGLOBIN 5.6 g/dL (12.0-16.0)
[2020-02-15] MEDS ORDERED: SODIUM CHLORIDE 0.9% 250ML 250 ML IV ONE (08:30)
[2020-02-15] MEDS ORDERED: CEFAZOLIN SOD 1 GM/NS 50ML 100 ML IV ONE (08:47)
[2020-02-15] MEDS ORDERED: HYDROCODONE/APAP 7.5MG-325MG 1 EA TAB PO PRN (11:15)
[2020-02-15] MEDS ORDERED: HYDROCODONE/APAP 5MG-325MG TAB PO PRN (11:15)
[2020-02-15] MEDS ORDERED: FENTANYL CITRATE/PF 100MCG/2 ML INJ ONE (11:45)
[2020-02-15 12:11] LABS: BASOPHILS % 0.3 % (0.0-1.0); EOSINOPHILS % 0.3 % (0.0-6.0); LYMPHOCYTES # (AUTO) 0.7 (1.0-3.2); LYMPHOCYTES % 22.8 % (18.0-39.1); MEAN CORPUSCULAR HGB CONC 30.7 g/dL (31-35); MEAN CORPUSCULAR VOLUME 100.9 fL (81-99); MONOCYTES # (AUTO) 0.3 (0.2-0.8); MONOCYTES % 8.4 % (4.4-11.3); NEUTROPHILS % 67.9 % (38.7-80.0); PLATELET COUNT 91 x10e3/uL (140-360); RED BLOOD COUNT 2.26 x10e6/uL (3.6-5.1); RED CELL DISTRIBUTION WIDTH 16.5 % (11.7-14.4)
[2020-02-15 12:17] LABS: HEMATOCRIT 22.8 % (34.2-44.1)
[2020-02-15 12:29] LABS: ALANINE AMINOTRANSFERASE 6 IU/L (0-55); ALBUMIN 2.3 g/dL (3.5-5.0); ALKALINE PHOSPHATASE 53 IU/L (40-150); ANION GAP 11.9 mmol/L (8-16); BLOOD UREA NITROGEN 26 mg/dL (7-26); BUN/CREATININE RATIO 30 (6-25); CARBON DIOXIDE 18 mmol/L (22-29); CHLORIDE 116 mmol/L (98-107); CREATININE, SERUM 0.87 mg/dL (0.57-1.11); EST GLOMERULAR FILTRATION RATE > 60 ML/MIN (60-); GLUCOSE 132 mg/dL (74-118); POTASSIUM 3.9 mmol/L (3.5-5.1); SODIUM 142 mmol/L (136-145)
[2020-02-15 12:53] LABS: CREATINE KINASE 57 IU/L (29-168)
[2020-02-15] MEDS ORDERED: SODIUM CHLORIDE 0.9% 250ML 250 ML ONE (13:29)
[2020-02-15] MEDS: KETOROLAC TROMETHAMINE 30 MG/ML VIAL IV PRN (13:31)
[2020-02-15] MEDS: PANTOPRAZOLE SOD 40 MG TABEC PO SCH (14:00)
[2020-02-15] MEDS ORDERED: MORPHINE SULFATE 2 MG/ML SYR 1ML IV PRN (16:45)
[2020-02-15] MEDS: CEFAZOLIN SOD 1 GM/NS 50ML 50 ML IV SCH (16:52)
[2020-02-15] MEDS ORDERED: ENOXAPARIN SOD INJ 40 MG/0.4 ML SYR SC SCH (17:00)
[2020-02-15 20:18] LABS: BASOPHILS % 0.3 % (0.0-1.0); HEMATOCRIT 24.4 % (34.2-44.1); HEMOGLOBIN 8.3 g/dL (12.0-16.0); LYMPHOCYTES # (AUTO) 0.4 (1.0-3.2); LYMPHOCYTES % 11.2 % (18.0-39.1); MEAN CORPUSCULAR HEMOGLOBIN 31.7 pg (28-32); MEAN CORPUSCULAR VOLUME 93.1 fL (81-99); MONOCYTES # (AUTO) 0.4 (0.2-0.8); MONOCYTES % 11.5 % (4.4-11.3); NEUTROPHILS # (AUTO) 2.7 (2.1-6.9); PLATELET COUNT 89 x10e3/uL (140-360); RED BLOOD COUNT 2.62 x10e6/uL (3.6-5.1)
[2020-02-15] MEDS ORDERED: IOPAMIDOL 370 MG/ML 200 ML INFUS..BTL INJ ONE (20:23)
[2020-02-15] MEDS ORDERED: SODIUM CHLORIDE 0.9% 50ML 50 ML ONE (20:23)
[2020-02-15 20:31] LABS: CREATINE KINASE 148 IU/L (29-168)
[2020-02-15] MEDS: METOPROLOL TARTRATE 25 MG TAB PO SCH (20:36)
[2020-02-15] MEDS: LEVETIRACETAM 500 MG TAB PO SCH (22:00)
[2020-02-16] VITALS (8 sets, daily range): BP systolic 107–162; BP diastolic 40–98
[2020-02-16] MEDS: CEFAZOLIN SOD 1 GM/NS 50ML 50 ML IV SCH ×2 (01:19→10:29)
[2020-02-16 05:25] LABS: BASOPHILS % 0.6 % (0.0-1.0); EOSINOPHILS % 0.3 % (0.0-6.0); HEMOGLOBIN 7.4 g/dL (12.0-16.0); LYMPHOCYTES # (AUTO) 0.8 (1.0-3.2); LYMPHOCYTES % 22.1 % (18.0-39.1); MEAN CORPUSCULAR HGB CONC 33.6 g/dL (31-35); MEAN CORPUSCULAR VOLUME 95.2 fL (81-99); MONOCYTES # (AUTO) 0.6 (0.2-0.8); MONOCYTES % 17.4 % (4.4-11.3); NEUTROPHILS % 59.3 % (38.7-80.0); PLATELET COUNT 120 x10e3/uL (140-360); RED BLOOD COUNT 2.31 x10e6/uL (3.6-5.1); RED CELL DISTRIBUTION WIDTH 17.2 % (11.7-14.4)
[2020-02-16 05:50] LABS: ALBUMIN 2.4 g/dL (3.5-5.0); ALKALINE PHOSPHATASE 56 IU/L (40-150); ANION GAP 9.8 mmol/L (8-16); BLOOD UREA NITROGEN 33 mg/dL (7-26); BUN/CREATININE RATIO 36 (6-25); CARBON DIOXIDE 20 mmol/L (22-29); CHLORIDE 118 mmol/L (98-107); CREATININE, SERUM 0.92 mg/dL (0.57-1.11); EST GLOMERULAR FILTRATION RATE 58 ML/MIN (60-); GLUCOSE 105 mg/dL (74-118); POTASSIUM 3.8 mmol/L (3.5-5.1); SODIUM 144 mmol/L (136-145)
[2020-02-16 05:51] LABS: ALANINE AMINOTRANSFERASE < 6 IU/L (0-55)
[2020-02-16 06:11] LABS: CHOL/HDL RATIO 3.6 (3.0-3.6)
[2020-02-16 06:32] LABS: THYROID STIMULATING HORMONE 0.191 uIU/mL (0.350-4.940)
[2020-02-16 06:43] LABS: CREATINE KINASE 297 IU/L (29-168)
[2020-02-16] MEDS: CARVEDILOL 3.125 MG TAB PO SCH ×3 (09:00→16:18)
[2020-02-16] MEDS: METOPROLOL TARTRATE 25 MG TAB PO SCH ×3 (09:00→21:00)
[2020-02-16] MEDS: LISINOPRIL 20 MG TAB PO SCH (09:44)
[2020-02-16] MEDS: LEVETIRACETAM 500 MG TAB PO SCH ×2 (10:53→21:35)
[2020-02-16] MEDS: PANTOPRAZOLE SOD 40 MG TABEC PO SCH (10:53)
[2020-02-16] MEDS ORDERED: KETOROLAC TROMETHAMINE 30 MG/ML VIAL IV ONE (11:15)
[2020-02-16 16:48] LABS: HEMATOCRIT 19.5 % (34.2-44.1); HEMOGLOBIN 6.3 g/dL (12.0-16.0)
[2020-02-16] MEDS: SODIUM CHLORIDE 0.9% 1000ML 1,000 ML IV SCH (17:03)
[2020-02-16] MEDS ORDERED: SODIUM CHLORIDE 0.9% 250ML 250 ML IV ONE (17:15)
[2020-02-16] MEDS ORDERED: SODIUM CHLORIDE 0.9% 250ML 250 ML ONE (20:59)
[2020-02-16] MEDS ORDERED: BISACODYL 10 MG SUPP PR ONE (23:45)
[2020-02-17] VITALS (8 sets, daily range): BP systolic 128–160; BP diastolic 50–82
[2020-02-17] MEDS: SODIUM CHLORIDE 0.9% 1000ML 1,000 ML IV SCH ×2 (00:36→13:56)
[2020-02-17] MEDS: PANTOPRAZOLE SOD 40 MG TABEC PO SCH (10:00)
[2020-02-17] MEDS: LEVETIRACETAM 500 MG TAB PO SCH ×2 (10:01→22:00)
[2020-02-17] MEDS: METOPROLOL TARTRATE 25 MG TAB PO SCH (10:01)
[2020-02-17] MEDS: CARVEDILOL 3.125 MG TAB PO SCH (10:01)
[2020-02-17] MEDS: LISINOPRIL 20 MG TAB PO SCH (10:01)
[2020-02-17 11:08] LABS: BASOPHILS % 0.8 % (0.0-1.0); EOSINOPHILS # (AUTO) 0.1 (0.0-0.4); EOSINOPHILS % 2.3 % (0.0-6.0); HEMOGLOBIN 9.4 g/dL (12.0-16.0); LYMPHOCYTES # (AUTO) 0.8 (1.0-3.2); LYMPHOCYTES % 30.1 % (18.0-39.1); MEAN CORPUSCULAR HGB CONC 33.6 g/dL (31-35); MEAN CORPUSCULAR VOLUME 92.4 fL (81-99); MONOCYTES # (AUTO) 0.5 (0.2-0.8); MONOCYTES % 17.6 % (4.4-11.3); NEUTROPHILS # (AUTO) 1.3 (2.1-6.9); NEUTROPHILS % 49.2 % (38.7-80.0); PLATELET COUNT 86 x10e3/uL (140-360); RED BLOOD COUNT 3.03 x10e6/uL (3.6-5.1); RED CELL DISTRIBUTION WIDTH 17.9 % (11.7-14.4)
[2020-02-17 11:30] LABS: ANION GAP 10.5 mmol/L (8-16); BLOOD UREA NITROGEN 22 mg/dL (7-26); BUN/CREATININE RATIO 35 (6-25); CALCIUM 7.5 mg/dL (8.4-10.2); CARBON DIOXIDE 19 mmol/L (22-29); CHLORIDE 119 mmol/L (98-107); CREATININE, SERUM 0.63 mg/dL (0.57-1.11); EST GLOMERULAR FILTRATION RATE > 60 ML/MIN (60-); GLUCOSE 93 mg/dL (74-118); POTASSIUM 3.5 mmol/L (3.5-5.1); SODIUM 145 mmol/L (136-145)
[2020-02-17 12:05] LABS: FERRITIN 684.73 ng/mL (4.63-204.00)
[2020-02-17] MEDS: IRON SUCROSE 100 MG in SODIUM CHLORIDE 0.9% 100 ML 100 ML IV SCH (15:29)
[2020-02-17] MEDS ORDERED: CYANOCOBALAMIN INJ 1,000 MCG/ML VIAL IM ONE (15:30)
[2020-02-18] VITALS (7 sets, daily range): BP systolic 114–172; BP diastolic 46–81
[2020-02-18] MEDS: SODIUM CHLORIDE 0.9% 1000ML 1,000 ML IV SCH ×2 (03:16→17:08)
[2020-02-18 06:11] LABS: EOSINOPHILS # (AUTO) 0.1 (0.0-0.4); EOSINOPHILS % 3.3 % (0.0-6.0); HEMOGLOBIN 8.6 g/dL (12.0-16.0); LYMPHOCYTES # (AUTO) 0.6 (1.0-3.2); MEAN CORPUSCULAR HEMOGLOBIN 30.7 pg (28-32); MEAN CORPUSCULAR HGB CONC 31.9 g/dL (31-35); MEAN CORPUSCULAR VOLUME 96.4 fL (81-99); MONOCYTES # (AUTO) 0.3 (0.2-0.8); MONOCYTES % 14.3 % (4.4-11.3); NEUTROPHILS # (AUTO) 1.1 (2.1-6.9); NEUTROPHILS % 50.9 % (38.7-80.0); PLATELET COUNT 85 x10e3/uL (140-360); RED CELL DISTRIBUTION WIDTH 18.7 % (11.7-14.4)
[2020-02-18 06:40] LABS: ALBUMIN 2.3 g/dL (3.5-5.0); ALBUMIN/GLOBULIN RATIO 0.8 (0.8-2.0); ALKALINE PHOSPHATASE 52 IU/L (40-150); ANION GAP 8.3 mmol/L (8-16); BLOOD UREA NITROGEN 18 mg/dL (7-26); BUN/CREATININE RATIO 31 (6-25); CALCIUM 7.5 mg/dL (8.4-10.2); CARBON DIOXIDE 18 mmol/L (22-29); CHLORIDE 106 mmol/L (98-107); CREATININE, SERUM 0.59 mg/dL (0.57-1.11); EST GLOMERULAR FILTRATION RATE > 60 ML/MIN (60-); GLUCOSE 78 mg/dL (74-118); POTASSIUM 3.3 mmol/L (3.5-5.1); SODIUM 129 mmol/L (136-145)
[2020-02-18 06:42] LABS: ALANINE AMINOTRANSFERASE < 6 IU/L (0-55)
[2020-02-18] MEDS: LEVETIRACETAM 500 MG TAB PO SCH ×2 (09:06→22:00)
[2020-02-18] MEDS: CYANOCOBALAMIN INJ 1,000 MCG/ML VIAL IM SCH (09:06)
[2020-02-18] MEDS: PANTOPRAZOLE SOD 40 MG TABEC PO SCH (09:06)
[2020-02-18] MEDS: LISINOPRIL 20 MG TAB PO SCH (09:06)
[2020-02-18] MEDS ORDERED: ONDANSETRON HCL 4 MG ORAL DISINTEGRATING TAB PO PRN (09:15)
[2020-02-18] MEDS: IRON SUCROSE 100 MG in SODIUM CHLORIDE 0.9% 100 ML 100 ML IV SCH (15:35)
[2020-02-18] MEDS: HYDRALAZINE HCL 20 MG/ML VIAL IV PRN (21:05)
[2020-02-19] VITALS (7 sets, daily range): BP systolic 155–187; BP diastolic 59–72
[2020-02-19] MEDS: HYDRALAZINE HCL 20 MG/ML VIAL IV PRN ×2 (04:20→21:36)
[2020-02-19 04:57] LABS: BASOPHILS % 0.9 % (0.0-1.0); EOSINOPHILS # (AUTO) 0.1 (0.0-0.4); EOSINOPHILS % 3.5 % (0.0-6.0); HEMATOCRIT 27.8 % (34.2-44.1); HEMOGLOBIN 9.2 g/dL (12.0-16.0); LYMPHOCYTES # (AUTO) 0.7 (1.0-3.2); LYMPHOCYTES % 28.8 % (18.0-39.1); MEAN CORPUSCULAR HEMOGLOBIN 30.6 pg (28-32); MEAN CORPUSCULAR HGB CONC 33.1 g/dL (31-35); MEAN CORPUSCULAR VOLUME 92.4 fL (81-99); MONOCYTES # (AUTO) 0.3 (0.2-0.8); MONOCYTES % 14.4 % (4.4-11.3); NEUTROPHILS # (AUTO) 1.2 (2.1-6.9); NEUTROPHILS % 52.4 % (38.7-80.0); PLATELET COUNT 96 x10e3/uL (140-360); RED BLOOD COUNT 3.01 x10e6/uL (3.6-5.1); RED CELL DISTRIBUTION WIDTH 18.2 % (11.7-14.4)
[2020-02-19 05:30] LABS: ALBUMIN 2.3 g/dL (3.5-5.0); ALBUMIN/GLOBULIN RATIO 0.8 (0.8-2.0); ALKALINE PHOSPHATASE 58 IU/L (40-150); ANION GAP 9.9 mmol/L (8-16); BLOOD UREA NITROGEN 10 mg/dL (7-26); BUN/CREATININE RATIO 19 (6-25); CALCIUM 7.3 mg/dL (8.4-10.2); CARBON DIOXIDE 20 mmol/L (22-29); CHLORIDE 114 mmol/L (98-107); CREATININE, SERUM 0.53 mg/dL (0.57-1.11); EST GLOMERULAR FILTRATION RATE > 60 ML/MIN (60-); GLUCOSE 92 mg/dL (74-118); SODIUM 141 mmol/L (136-145)
[2020-02-19 05:47] LABS: ALANINE AMINOTRANSFERASE < 6 IU/L (0-55); POTASSIUM 2.9 mmol/L (3.5-5.1)
[2020-02-19] MEDS: SODIUM CHLORIDE 0.9% 1000ML 1,000 ML IV SCH ×2 (05:56→21:36)
[2020-02-19] MEDS ORDERED: POTASSIUM CHLORIDE 20MEQ/100ML 200 ML IV ONE (06:00)
[2020-02-19] MEDS: PANTOPRAZOLE SOD 40 MG TABEC PO SCH (08:54)
[2020-02-19] MEDS: LISINOPRIL 20 MG TAB PO SCH (08:54)
[2020-02-19] MEDS: CYANOCOBALAMIN INJ 1,000 MCG/ML VIAL IM SCH (08:54)
[2020-02-19] MEDS: LEVETIRACETAM 500 MG TAB PO SCH ×2 (08:54→21:36)
[2020-02-19] MEDS ORDERED: POTASSIUM CHLORIDE 20 MEQ TAB CR PO PRN (12:15)
[2020-02-19] MEDS: IRON SUCROSE 100 MG in SODIUM CHLORIDE 0.9% 100 ML 100 ML IV SCH (16:32)
[2020-02-19] MEDS ORDERED: ENOXAPARIN 30 MG/0.3 ML SYR SC SCH (17:00)
[2020-02-19] MEDS ORDERED: MAGNESIUM HYDROXIDE 30 ML UDC PO ONE (22:30)
[2020-02-20] VITALS: BP 131/79
[2020-02-20 04:00] VITALS: BP 164/70
[2020-02-20 04:59] LABS: EOSINOPHILS # (AUTO) 0.1 (0.0-0.4); EOSINOPHILS % 5.4 % (0.0-6.0); HEMATOCRIT 27.2 % (34.2-44.1); HEMOGLOBIN 9.1 g/dL (12.0-16.0); LYMPHOCYTES # (AUTO) 0.6 (1.0-3.2); LYMPHOCYTES % 28.8 % (18.0-39.1); MEAN CORPUSCULAR HEMOGLOBIN 31.2 pg (28-32); MEAN CORPUSCULAR HGB CONC 33.5 g/dL (31-35); MEAN CORPUSCULAR VOLUME 93.2 fL (81-99); MONOCYTES # (AUTO) 0.4 (0.2-0.8); MONOCYTES % 17.6 % (4.4-11.3); NEUTROPHILS % 46.7 % (38.7-80.0); PLATELET COUNT 125 x10e3/uL (140-360); RED BLOOD COUNT 2.92 x10e6/uL (3.6-5.1); RED CELL DISTRIBUTION WIDTH 18.1 % (11.7-14.4)
[2020-02-20 05:14] LABS: ANION GAP 13.1 mmol/L (8-16); BLOOD UREA NITROGEN 8 mg/dL (7-26); BUN/CREATININE RATIO 14 (6-25); CALCIUM 7.1 mg/dL (8.4-10.2); CARBON DIOXIDE 19 mmol/L (22-29); CHLORIDE 112 mmol/L (98-107); CREATININE, SERUM 0.56 mg/dL (0.57-1.11); EST GLOMERULAR FILTRATION RATE > 60 ML/MIN (60-); GLUCOSE 88 mg/dL (74-118); POTASSIUM 3.1 mmol/L (3.5-5.1); SODIUM 141 mmol/L (136-145)
[2020-02-20 08:20] VITALS: BP 162/64
[2020-02-20 08:25] VITALS: BP 162/64
[2020-02-20] MEDS: SODIUM CHLORIDE 0.9% 1000ML 1,000 ML IV SCH (10:58)
[2020-02-20] MEDS: PANTOPRAZOLE SOD 40 MG TABEC PO SCH (10:58)
[2020-02-20] MEDS: CYANOCOBALAMIN INJ 1,000 MCG/ML VIAL IM SCH (10:58)
[2020-02-20] MEDS: LISINOPRIL 20 MG TAB PO SCH (10:59)
[2020-02-20] MEDS: LEVETIRACETAM 500 MG TAB PO SCH (10:59)
[2020-02-20 12:05] VITALS: BP 125/97
== END 2020-02-20 14:53 | DRG 481 ==
LOC: ER 19:28 → ERHOLD 21:06 → MED/SURG 02-15 02:53
PROVIDERS: ADMIT Internal Medicine; ATTEND Internal Medicine
PROC: 30233N1 Transfusion of Nonautologous Red Blood Cells into Peripheral Vein, Percutaneous Approach (ICD-10-PCS; 2020-02-15)
PROC: 0QS706Z Reposition Left Upper Femur with Intramedullary Internal Fixation Device, Open Approach (ICD-10-PCS; principal; 2020-02-15 08:00)
DX: S72.92XA Unspecified fracture of left femur, initial encounter for closed fracture (principal); D61.818 Other pancytopenia; E87.2 Acidosis; D62 Acute posthemorrhagic anemia; I10 Essential (primary) hypertension; W19.XXXA Unspecified fall, initial encounter; F03.90 Unspecified dementia, unspecified severity, without behavioral disturbance, psychotic disturbance, mood disturbance, and anxiety; M06.9 Rheumatoid arthritis, unspecified; D70.9 Neutropenia, unspecified; I49.3 Ventricular premature depolarization; Z91.81 History of falling
CPT/HCPCS: 36415; 51700; 71045; 74177; 76000; 80048; 80053; 80061; 81001; 82270; 82550; 82553; 82607; 82728; 82746; 83036; 83540; 84443; 84466; 84484; 85014; 85018; 85025; 85045; 85610; 85730; 86850; 86900; 86920; 93005; 93306; 96361; 96374; 96375; 97139; 99251; 99284; C1713; J0360; J0690; J1100; J1644; J1650; J1756; J1885; J2001; J2270; J2370; J2405; J3010; J3420; J3480; J7030; J7050; P9016; Q9967; U0002

== ENCOUNTER 2020-03-02 14:28 | Emergency (ER) | payer MEDICARE, OTHER ==
[~2020-03-02] VITALS: Ht 152.4 cm; Wt 49.9 kg
[~2020-03-02 14:28] MED LIST changes: +ASPIRIN81 MG; +CARVEDILOL3.125 MG PO; -DEXAMETHASONE SOD PHOS INJ 4 MG/ML VIAL ONE; +DOCUSATE SODIU100 MG PO; -ETOMIDATE 2 MG/ML 10 ML INJ IV ONE; -FENTANYL CITRATE/PF 100MCG/2 ML INJ ONE; -GLYCOPYRROLATE INJ 0.2 MG/ML VIAL ONE; +LEVETIRACETAM500 MG PO; -LIDOCAINE HCL 2% LOCAL INJ 5 ML SDV VIAL INJ ONE; +LISINOPRIL10 MG PO; -PHENYLEPHRINE HCL 1% 10 MG/ML VIAL ONE; +PROCARDIA XL30 MG; +QUETIAPINE FUMA50 M1; +QUETIAPINE FUMA50 M1 PO; +SENNA LAX8.6 MG PO; -SEVOFLURANE INHAL SOLN 250 ML PEN BTL ONE
[2020-03-02 15:45] LABS: EOSINOPHILS % 1.4 % (0.0-6.0); HEMATOCRIT 26.8 % (34.2-44.1); HEMOGLOBIN 8.4 g/dL (12.0-16.0); LYMPHOCYTES # (AUTO) 0.7 (1.0-3.2); LYMPHOCYTES % 32.5 % (18.0-39.1); MEAN CORPUSCULAR HEMOGLOBIN 31.6 pg (28-32); MEAN CORPUSCULAR HGB CONC 31.3 g/dL (31-35); MEAN CORPUSCULAR VOLUME 100.8 fL (81-99); MONOCYTES # (AUTO) 0.4 (0.2-0.8); MONOCYTES % 16.7 % (4.4-11.3); NEUTROPHILS % 48.4 % (38.7-80.0); PLATELET COUNT 221 x10e3/uL (140-360); RED BLOOD COUNT 2.66 x10e6/uL (3.6-5.1); RED CELL DISTRIBUTION WIDTH 19.9 % (11.7-14.4)
[2020-03-02 16:01] LABS: ALANINE AMINOTRANSFERASE 10 IU/L (0-55); ALBUMIN 3.2 g/dL (3.5-5.0); ALBUMIN/GLOBULIN RATIO 0.7 (0.8-2.0); ALKALINE PHOSPHATASE 140 IU/L (40-150); ANION GAP 18.1 mmol/L (8-16); BLOOD UREA NITROGEN 25 mg/dL (7-26); BUN/CREATININE RATIO 35 (6-25); CALCIUM 8.4 mg/dL (8.4-10.2); CARBON DIOXIDE 27 mmol/L (22-29); CHLORIDE 105 mmol/L (98-107); CREATININE, SERUM 0.72 mg/dL (0.57-1.11); EST GLOMERULAR FILTRATION RATE > 60 ML/MIN (60-); GLUCOSE 90 mg/dL (74-118); POTASSIUM 3.1 mmol/L (3.5-5.1); SODIUM 147 mmol/L (136-145)
[2020-03-02] MEDS ORDERED: SODIUM CHLORIDE 0.9% 50ML 50 ML ONE (16:22)
[2020-03-02] MEDS ORDERED: IOPAMIDOL 370 MG/ML 200 ML INFUS..BTL INJ ONE (16:22)
[2020-03-02] MEDS ORDERED: ASPIRIN 81 MG CHEW TAB PO ONE (16:45)
[2020-03-02 17:01] LABS: CREATINE KINASE MB 1.5 ng/mL (0-5.0)
[2020-03-02] MEDS ORDERED: KCL 20MEQ/.9 SOD CHL 1,000 ML IV STA (20:50)
== END 2020-03-02 23:18 ==
LOC: ER 14:31
DX: R05 Cough (principal); J90 Pleural effusion, not elsewhere classified; F03.90 Unspecified dementia, unspecified severity, without behavioral disturbance, psychotic disturbance, mood disturbance, and anxiety; J44.9 Chronic obstructive pulmonary disease, unspecified; M06.9 Rheumatoid arthritis, unspecified; R94.31 Abnormal electrocardiogram [ECG] [EKG]; Z20.828 Contact with and (suspected) exposure to other viral communicable diseases
CPT/HCPCS: 36415; 71045; 71260; 80053; 82550; 82553; 83880; 84484; 85025; 93005; 99284; Q9967; U0002